=== PATIENT | female | born 1990 | race African-American/Black ===

== ENCOUNTER 2018-06-02 12:12 | Inpatient (IN) | payer OTHER ==
[2018-06-02] MEDS ORDERED: ACETAMINOPHEN 1000 MG/100 ML VIAL (NON FORMULARY) IVPB ONE ×2 (12:23→19:11)
[2018-06-02] MEDS ORDERED: SODIUM CHLORIDE 1,000 ML IV STA (12:23)
[2018-06-02] MEDS ORDERED: ACETAMINOPHEN INJECTION 100 ML IVPB ONE ×2 (12:28→19:32)
[2018-06-02 12:46] LABS: BASO % 0.2 % (0-2.0); EOS % 0.1 % (0-4.5); HEMATOCRIT 38.2 % (32.4-45.2); HEMOGLOBIN 12.6 GM/dL (10.7-15.3); LYMPH % 4.1 % (8-40); MCH 30.7 pg (25.7-33.7); MCHC 32.9 g/dl (32.0-36.0); MEAN CELL VOLUME 93.4 fl (80-96); MEAN PLT VOLUME 10.1 fl (7.5-11.1); NEUT % 85.6 % (42.8-82.8); PLATELET COUNT 140 K/MM3 (134-434); RBC 4.09 M/mm3 (3.60-5.2); RDW 13.4 % (11.6-15.6)
[2018-06-02] MEDS ORDERED: FAMOTIDINE 20 MG/50 ML IVPB 20 MG/50 ML MG IVPB ONE ×2 (12:46→13:16)
--- NOTE | 2018-06-02 12:46 | PDOC ---
History of Present Illness - General History Source: Patient Exam Limitations: No Limitations - History of Present Illness Initial Comments: 06/02/18 13:06 The patient is a 28 year old female, with a significant PMH of migraines during childhood, who presents to the emergency department today for evaluation of a headache and abdominal pain for approximately 5 days. Patient endorses fronto- temporal headache, photosensitivity, chest pain, and SOB. The patient notes subjective fever, diaphoresis, and body aches which began 2 days ago. She also reports several episodes of NBNB emesis which began last night into this morning. She states that she has taken advil but that it only helps for about a half hour. Denies palpitation, dizziness, weakness, D, bladder and bowel problems, leg swelling, rash. No sick contacts or travel. No new changes in medications. Takes OCP for control Allergies: None Past Medical History: Migraines during childhood Social history: Lives with family. No tobacco, ETOH or drug use. Surgical history: None reported. <Leigh Lewis - Last Filed: 06/02/18 13:06> - General History Source: Patient Exam Limitations: No Limitations <Dayanara Rabago - Last Filed: 06/03/18 07:22> - General Chief Complaint: Pain Stated Complaint: HEADACHE/ABD PAIN Time Seen by Provider: 06/02/18 12:23 Past History <Leigh Lewis - Last Filed: 06/02/18 13:06> - Past Medical History Asthma: No Cancer: No Cardiac Disorders: No COPD: No Diabetes: No HTN: No Seizures: No Thyroid Disease: No - Suicide/Smoking/Psychosocial Hx Smoking History: Never smoked Have you smoked in the past 12 months: No Number of Cigarettes Smoked Daily: 0 Information on smoking cessation initiated: No Hx Alcohol Use: No Drug/Substance Use Hx: No Hx Substance Use Treatment: No <Dayanara Rabago - Last Filed: 06/03/18 07:22> - Past Medical History Allergies/Adverse Reactions: Allergies Allergy/AdvReac Type Severity Reaction Status Date / Time No Known Allergies Allergy Verified 06/02/18 12:19 Home Medications: Ambulatory Orders NK [No Known Home Medication] 06/02/18 Review of Systems - Review of Systems Comments:: 06/02/18 13:06 GENERAL/CONSTITUTIONAL: (+) fever and chills. (+)diaphoresis. (+)body aches. HEAD, EYES, EARS, NOSE AND THROAT: No change in vision or hearing. No ear pain or discharge. No sore throat or mouth pain. No difficulty swallowing. No congestion. CARDIOVASCULAR: (+) chest pain. No palpitations, syncope or edema. RESPIRATORY: (+) SOB. No cough, wheezing, or hemoptysis. GASTROINTESTINAL (+)nausea/vomiting. No diarrhea or constipation. No bloody stools. GENITOURINARY: No hematuria, dysuria, frequency, urgency or other changes. MUSCULOSKELETAL: No decreased range of motion. No neck or back pain. +myalgias SKIN: No rash or changes in skin color or lesions. No wounds. NEUROLOGIC: alert and oriented appropriately (+) headache, (+)photo sensitivity. dizziness, loss of consciousness, or change in strength/sensation. ALLERGIC/IMMUNOLOGIC: No allergies PSYCH: no anxiety/depression All other systems reviewed and negative, or as documented in HPI. <Leigh Lewis - Last Filed: 06/02/18 13:06> *Physical Exam - Vital Signs Last Vital Signs Temp Pulse Resp BP Pulse Ox 103.0 F H 140 H 21 H 108/63 100 06/02/18 12:15 06/02/18 12:15 06/02/18 12:15 06/02/18 12:15 06/02/18 12:15 - Physical Exam Comments: 06/02/18 13:06 General: malaised appearing HEENT: NCAT, PERRL, EOMI, clear conjunctiva, anicteric, moist mucus membranes, clear oropharynx, no oral lesions.. Neck: neck supple, FROM, neg brudzinski or kernig sign Resp: CTAB, normal and even respirations, no respiratory distress CVS: (+)tachycardic, no murmurs, 2+ peripheral pulses throughout, no peripheral edema Abdomen: (+)diffuse tenderness. soft, ND, no rebound or guarding. No murphys sign or mcburneys point tenderness. No CVAT. Back: nontender, normal inspection and ROM MSK: no edema, MEZA x4, ROM intact. No clubbing or cyanosis. normal bulk and tone. Neuro: alert, oriented appropriately; no focal neurologic deficits Skin: (+)Very Warm to touch. well perfused, cap refill <2 sec, normal color, no rash <Leigh Lewis - Last Filed: 06/02/18 13:06> - Vital Signs Last Vital Signs Temp Pulse Resp BP Pulse Ox 103.0 F H 140 H 21 H 108/63 100 06/02/18 12:15 06/02/18 12:15 06/02/18 12:15 06/02/18 12:15 06/02/18 12:15 <Dayanara Rabago - Last Filed: 06/03/18 07:22> Heart Score/ECG Review #1 ECG reviewed & interpreted by me at: 14:45 General ECG Interpretation: Sinus Rhythm, Normal Rate Compared to previous ECG there are: Previous ECG unavail 06/02/18 15:48 EKG normal sinus rhythm at 97 bpm, no interval abnormalities, narrow QRS, ST and T wave segments and morphology normal. Nonspecific T wave abnormalities <Dayanara Rabago - Last Filed: 06/03/18 07:22> ED Treatment Course - LABORATORY CBC & Chemistry Diagram: 06/02/18 12:39 06/02/18 12:39 - ADDITIONAL ORDERS Additional order review: 06/02/18 12:39 RBC 4.09 MCV 93.4 MCHC 32.9 RDW 13.4 D MPV 10.1 Neutrophils % 85.6 H D Lymphocytes % 4.1 L D Monocytes % 10.0 Eosinophils % 0.1 D Basophils % 0.2 - Medications Given in the ED: ED Medications Discontinued Medications Generic Name Dose Route Start Last Admin Trade Name Freq PRN Reason Stop Dose Admin Acetaminophen 1,000 mg 06/02/18 12:23 06/02/18 12:39 Ofirmev Injection - IVPB 06/02/18 12:24 1,000 mg ONCE ONE Administration <Leigh Lewis - Last Filed: 06/02/18 13:06> - LABORATORY CBC & Chemistry Diagram: 06/02/18 12:39 06/02/18 12:39 - Medications Given in the ED: ED Medications Discontinued Medications Generic Name Dose Route Start Last Admin Trade Name Freq PRN Reason Stop Dose Admin Acetaminophen 1,000 mg 06/02/18 12:23 06/02/18 12:39 Ofirmev Injection - IVPB 06/02/18 12:24 1,000 mg ONCE ONE Administration <Dayanara Rabago - Last Filed: 06/03/18 07:22> Medical Decision Making - Medical Decision Making 06/02/18 15:20 I, Dayanara Rabago MD, attest that this document has been prepared under my direction and personally reviewed by me in its entirety. I further attest, that it accurately reflects all work, treatment, procedures and medical decision -making performed by me. See HPI for details Vital signs reviewed, +fever and tachycardia noted. No hypoxia. Prior notes reviewed, including admissions, discharges and consultations. laboratory results and imaging reviewed, basic labs and lytes wnl, notable for + leukocytosis; LFTs/lipase normal UA_pending CXR_no acute chest pathology, clear lungs Flu test_neg ED course: DDx abdominal pain: Renal colic, biliary colic, metabolic/electrolyte derangements. GERD, PUD, esophageal spasm, pancreatitis, hepatitis, constipation , colitis, gastroenteritis, cholecystitis, UTI, pyelonephritis, ileus, SBO, medication side effect, hernia, appendicitis, diverticulitis, doubt pelvic etiology such as symptomatic cyst/torsion, denies as on ocp. Given medications IVF, tylenol / toradol and pepcid, with clinical improvement. Tolerating oral intake, given PO contrast given BMI<20 at 3pm. Vital signs reviewed and still febrile, tachy improved. On repeat physical exam, headache improved, mentating and no focal neuro changes/deficits. the abdomen is soft and with RLQ and RUQ tenderness, will need CT a/p to r/o appy vs infection/ inflammation/intra abdominal process with high fever. s/o pending CT results to Dr Elizabeth at 4pm 06/02/18 16:57 06/03/18 07:17 <Dayanara Rabago - Last Filed: 06/03/18 07:22> *DC/Admit/Observation/Transfer - Attestations Scribe Attestion: 06/02/18 13:06 Documentation prepared by Leigh Lewis, acting as medical communication specialist for Dayanara Rabago MD. <Leigh Lewis - Last Filed: 06/02/18 13:06> <Dayanara Rabago - Last Filed: 06/03/18 07:22> Diagnosis at time of Disposition: Fever Qualifiers: Fever type: unspecified Qualified Code(s): R50.9 - Fever, unspecified Abdominal pain Qualifiers: Abdominal location: unspecified location Qualified Code(s): R10.9 - Unspecified abdominal pain - Discharge Dispostion Condition at time of disposition: Fair
[2018-06-02] MEDS ORDERED: SODIUM CHLORIDE 0.9% 500 ML INFUS.BAG IV ONE (12:59)
[2018-06-02 13:17] LABS: ALBUMIN 3.5 g/dl (3.4-5.0); ALK PHOS 64 U/L (45-117); ANION GAP 7 MMOL/L (8-16); BILIRUBIN,TOTAL 0.9 mg/dL (0.2-1); BLOOD UREA NITROGEN 11 mg/dL (7-18); CALCIUM 8.9 mg/dL (8.5-10.1); CHLORIDE 102 mmol/L (98-107); CO2 25 mmol/L (21-32); CREATININE 1.2 mg/dL (0.55-1.3); GLUCOSE,RANDOM 99 mg/dL (74-106); LIPASE 108 U/L (73-393); POTASSIUM 3.4 mmol/L (3.5-5.1); SGOT/AST 11 U/L (15-37); SGPT/ALT 17 U/L (13-61); SODIUM 134 mmol/L (136-145)
[2018-06-02 13:48] LABS: ANISOCYTOSIS 1+; MACROCYTOSIS 1+; PLATELET ESTIMATE NORMAL
[2018-06-02] MEDS ORDERED: KETOROLAC TROMETHAMINE 15 MG/ML VIAL IVPUSH ONE (14:18)
[2018-06-02] MEDS ORDERED: POTASSIUM CHLORIDE TABS 20 MEQ TABLET.ER (FP) PO ONE ×2 (14:56→16:27)
[2018-06-02] MEDS ORDERED: KETOROLAC TROMETHAMINE 15 MG/ML VIAL ONE (16:27)
[2018-06-02 17:32] LABS: EPI CELLS 3.2 /HPF (0-5); PH,URINE 5.5 (5.0-8.0); URINE APPEARANCE CLOUDY; URINE BACTERIA 6332.7 /hpf (NEGATIVE); URINE BILIRUBIN NEGATIVE (NEGATIVE); URINE CASTS 47 /hpf (0-8); URINE COLOR YELLOW; URINE GLUCOSE (UA) NEGATIVE (NEGATIVE); URINE KETONE 1+ (NEGATIVE); URINE LEUK ESTERASE 2+ (NEGATIVE); URINE NITRITE POSITIVE (NEGATIVE); URINE PROTEIN 2+ (NEGATIVE); URINE RBC 4 /hpf (0-4); URINE WBC 151 /hpf (0-5)
[2018-06-02] MEDS ORDERED: CEFTRIAXONE 1 GM in DEXTROSE 5%-WATER - 100 ML IVPB ONE (19:10)
[2018-06-02] MEDS ORDERED: SODIUM CHLORIDE 0.9% 1000 ML INFUS.BAG IV ONE (19:11)
--- NOTE | 2018-06-02 19:55 | PN ---
Teaching Attending Note Name of Resident: Ebony Brown ATTENDING PHYSICIAN STATEMENT I saw and evaluated the patient. I reviewed the resident's note and discussed the case with the resident. I agree with the resident's findings and plan as documented. SUBJECTIVE: Patient is a 28 year old woman with a significant PMH of migraines during childhood, who presents to the ER today for evaluation of a headache and abdominal pain for approximately 5 days. Patient has fronto-temporal headache, photosensitivity, chest pain, and SOB. The patient notes subjective fever, diaphoresis, and body aches which began 2 days ago. She also reports several episodes of NBNB emesis which began last night into this morning. She states that she has taken Advil but that it only helps for about a half hour. Denies palpitation, dizziness, weakness, bladder and bowel problems, leg swelling or rash. No sick contacts or travel. No new changes in medications. Is on Depo for control on her left arm. LMP ended yesterday. OBJECTIVE: Alert Vital Signs Period Temp Pulse Resp BP Sys/Pedersen Pulse Ox Last 24 Hr 100.5 F-103.0 F 98-140 16-21 96-112/53-67 96-100 HEENT: No Jaundice, eye redness or discharge, PERRLA, EOMI. Normocephalic, atraumatic. External ears are normal and hearing is grossly intact. No nasal discharge. Neck: Supple, nontender. No palpable adenopathy or thyromegaly. No JVD Chest: Good effort. Clear to auscultation and percussion. Heart: Regular. No S3, rub or murmur Abdomen: Not distended, soft, diffuse tenderness and no HSM. No rebound or guarding. No CVAT. Normal bowel sounds. Ext: Peripheral pulses intact. No leg edema. Skin: Warm and dry. No petechiae, rash or ecchymosis. Neuro: Alert. Oriented x3. CN 2-12 grossly intact. Sensation grossly intact in all four extremities and DTR are symmetric. Psych: Appropriate mood and affect. Good insight. Current Medications Generic Name Dose Route Start Last Admin Trade Name Freq PRN Reason Stop Dose Admin Acetaminophen 1,000 mg 06/02/18 19:52 Ofirmev Injection - IVPB Q6H PRN FEVER Home Medications Medication Instructions Recorded NK [No Known Home Medication] 06/02/18 Abnormal Lab Results 06/02/18 06/02/18 06/02/18 12:39 12:39 16:51 WBC 14.0 H Absolute Neuts (auto) 12.0 H Neutrophils % 85.6 H D Lymphocytes % 4.1 L D Sodium 134 L Potassium 3.4 L Anion Gap 7 L AST 11 L Urine Protein 2+ H Urine Ketones 1+ H Urine Blood 2+ H Urine Nitrite Positive H Ur Leukocyte Esterase 2+ H ASSESSMENT AND PLAN: 1. Sepsis due to Pyelonephritis - CT abd/pelvis with contrast shows findings consistent with right kidney pyelonephritis and an equivocal small focus of ?? plantar fascitis involving the upper pole of the left kidney. Sepsis workup done and she is being treated with IV Rocephin, Pepcid, Toradol and Zofran as well as IV NS. Lactic acid level pending. No acute abnormality on CXR. EKG shows sinus tachycardia with no significant ST-T wave changes. Flu swab is negative. Hypokalemia may be due to vomiting. Will check Mg+ level and give IV KCL. 2. DVT prophylaxis - Lovenox 40 mg SQ q 24 hours. 3. Advance directives - Full code
[2018-06-02] MEDS ORDERED: CEFTRIAXONE 1 GM/50 ML BAG ONE (19:57)
[2018-06-02] MEDS ORDERED: SODIUM CHLORIDE 500 ML IV STA (19:58)
--- NOTE | 2018-06-02 20:34 | HP ---
CHIEF COMPLAINT:abdominal pains x 5 days PCP: HISTORY OF PRESENT ILLNESS: 28 y/o female with no PMH presents to to the ED with a 5 day history of worsening abdominal pains. She says the pain started on Tuesday out of nowhere, and has been continuous since then. She describes the pain as sharp and cramp and states that it is worse at night to the point where she cannot sleep. She has had fevers at home, the highest being 103. She has had multiple episodes of vomiting but no diarrhea. states she has never had anything like this before- no one else is sick at home and she denies any recent travel. ER course was notable for: (1)T 103, HR 140 WBC 14 (2) given 2 L of fluids, 1 gram ceftriaxone, tylenol/toradol/pepcid (3) ab/pelvis CT showing right sided pyelonephritis w/ small plantar fascitis in upper pole of L kidney Recent Travel: denies PAST MEDICAL HISTORY: none PAST SURGICAL HISTORY: denies Social History: Smoking:denies Alcohol:denies Drugs: denies Family History: Allergies No Known Allergies Allergy (Verified 06/02/18 12:19) HOME MEDICATIONS: Home Medications Medication Instructions Recorded NK [No Known Home Medication] 06/02/18 REVIEW OF SYSTEMS CONSTITUTIONAL: Present: fever, diaphoresis, loss of appetite Absent: chills, generalized weakness, malaise, weight change HEENT: Absent: rhinorrhea, nasal congestion, throat pain, throat swelling, difficulty swallowing, mouth swelling, ear pain, eye pain, visual changes CARDIOVASCULAR: Absent: chest pain, syncope, palpitations, irregular heart rate, lightheadedness , peripheral edema RESPIRATORY: Absent: cough, shortness of breath, dyspnea with exertion, orthopnea, wheezing, stridor, hemoptysis GASTROINTESTINAL: Present: abdominal pain, nausea, vomiting, Absent: abdominal distension, diarrhea, constipation, melena, hematochezia GENITOURINARY: Absent: dysuria, frequency, urgency, hesitancy, hematuria, flank pain, genital pain MUSCULOSKELETAL: Absent: myalgia, arthralgia, joint swelling, back pain, neck pain SKIN: Absent: rash, itching, pallor HEMATOLOGIC/IMMUNOLOGIC: Absent: easy bleeding, easy bruising, lymphadenopathy, frequent infections ENDOCRINE: Absent: unexplained weight gain, unexplained weight loss, heat intolerance, cold intolerance NEUROLOGIC: Absent: headache, focal weakness or paresthesias, dizziness, unsteady gait, seizure, mental status changes, bladder or bowel incontinence PSYCHIATRIC: Absent: anxiety, depression, suicidal or homicidal ideation, hallucinations. PHYSICAL EXAMINATION Vital Signs - 24 hr 06/02/18 06/02/18 06/02/18 12:15 13:57 15:51 Temperature 103.0 F H 101.6 F H 100.5 F H Pulse Rate 140 H Pulse Rate [ 105 H 98 H Left Apical] Respiratory 21 H 16 16 Rate Blood Pressure 108/63 Blood Pressure 96/53 L 100/65 [Left Arm] O2 Sat by Pulse 100 96 100 Oximetry (%) 06/02/18 06/02/18 16:59 19:05 Temperature 100.7 F H 101.7 F H Pulse Rate Pulse Rate [ 104 H 105 H Left Apical] Respiratory 16 18 Rate Blood Pressure Blood Pressure 106/61 112/67 [Left Arm] O2 Sat by Pulse 100 97 Oximetry (%) GENERAL: Awake, alert, appears in distress EYES: PEERLA: EOMI no scleral icterus NECK: no JVD; no lymphdenopathy LUNGS: CTA B/L; no rales, rhonchi or wheezing. HEART: tachycardic, normal S1 and S2 without murmur, rub or gallop. ABDOMEN: Soft,diffuse tenderness upon palpation; nondistended +BS in all 4 quadrants MUSCULOSKELETAL: No CVA tenderness EXTREMITIES: warm; well-perfused;no clubbing/cyanosis or edema NEUROLOGICAL: Cranial nerves II-XII intact. Normal speech. Normal gait. PSYCHIATRIC: Cooperative. Good eye contact. Appropriate mood and affect. SKIN: Warm, dry, normal turgor, no rashes or lesions noted, normal capillary refill. Laboratory Results - last 24 hr 06/02/18 06/02/18 06/02/18 12:37 12:39 12:39 WBC 14.0 H RBC 4.09 Hgb 12.6 Hct 38.2 D MCV 93.4 MCH 30.7 MCHC 32.9 RDW 13.4 D Plt Count 140 MPV 10.1 Absolute Neuts (auto) 12.0 H Neutrophils % 85.6 H D Neutrophils % (Manual) 76.8 Band Neutrophils % 5.0 Lymphocytes % 4.1 L D Lymphocytes % (Manual) 8.1 Monocytes % 10.0 Monocytes % (Manual) 9 Eosinophils % 0.1 D Eosinophils % (Manual) 0.0 Basophils % 0.2 Basophils % (Manual) 0.0 Myelocytes % (Man) 0 Promyelocytes % (Man) 0 Blast Cells % (Manual) 0 Nucleated RBC % 0 Metamyelocytes 0 Hypochromia 0 Platelet Estimate Normal Platelet Comment Present Polychromasia 0 Poikilocytosis 0 Anisocytosis 1+ Microcytosis 0 Macrocytosis 1+ Sodium 134 L Potassium 3.4 L Chloride 102 Carbon Dioxide 25 Anion Gap 7 L BUN 11 Creatinine 1.2 Creat Clearance w eGFR 53.89 Random Glucose 99 Calcium 8.9 Total Bilirubin 0.9 AST 11 L ALT 17 Alkaline Phosphatase 64 Total Protein 8.0 Albumin 3.5 Lipase 108 Serum , Qual Negative Urine Color Urine Appearance Urine pH Ur Specific [place] Urine Protein Urine Glucose (UA) Urine Ketones Urine Blood Urine Nitrite Urine Bilirubin Urine Urobilinogen Ur Leukocyte Esterase Urine WBC (Auto) Urine RBC (Auto) Urine Casts (Auto) U Epithel Cells (Auto) Urine Bacteria (Auto) Urine HCG, Qual Influenza A (Rapid) Influenza B (Rapid) 06/02/18 06/02/18 06/02/18 13:49 16:51 16:51 WBC RBC Hgb Hct MCV MCH MCHC RDW Plt Count MPV Absolute Neuts (auto) Neutrophils % Neutrophils % (Manual) Band Neutrophils % Lymphocytes % Lymphocytes % (Manual) Monocytes % Monocytes % (Manual) Eosinophils % Eosinophils % (Manual) Basophils % Basophils % (Manual) Myelocytes % (Man) Promyelocytes % (Man) Blast Cells % (Manual) Nucleated RBC % Metamyelocytes Hypochromia Platelet Estimate Platelet Comment Polychromasia Poikilocytosis Anisocytosis Microcytosis Macrocytosis Sodium Potassium Chloride Carbon Dioxide Anion Gap BUN Creatinine Creat Clearance w eGFR Random Glucose Calcium Total Bilirubin AST ALT Alkaline Phosphatase Total Protein Albumin Lipase Serum , Qual Urine Color Yellow Urine Appearance Cloudy Urine pH 5.5 Ur Specific [place] 1.021 Urine Protein 2+ H Urine Glucose (UA) Negative Urine Ketones 1+ H Urine Blood 2+ H Urine Nitrite Positive H Urine Bilirubin Negative Urine Urobilinogen 1.0 Ur Leukocyte Esterase 2+ H Urine WBC (Auto) 151 Urine RBC (Auto) 4 Urine Casts (Auto) 47 U Epithel Cells (Auto) 3.2 Urine Bacteria (Auto) 6332.7 Urine HCG, Qual Negative Influenza A (Rapid) Negative Influenza B (Rapid) Negative ASSESSMENT/PLAN: 28 y/o female with no PMH presents to the ED with diffuse abdominal pain, fevers , loss of appetite found to have right sided pyelonephritis #Right sided Pyelonephritis already received 1 gram of ceftriaxone; tylenol and pepcid will continue with ceftriaxone 2 gram daily and flagyl given enteritis-like symptoms f/u lactic acid zofran PRN for nausea; tylenol PRN pain NS @125mls/hr monitor hemodynamics F/E/N NS @125mls/hr monitor electrolytes regular diet dvt ppx: lovenox Problem List - Problem (1) Pyelonephritis Code(s): N12 - TUBULO-INTERSTITIAL NEPHRITIS, NOT SPCF ACUTE OR CHRONIC (2) Abdominal pain Code(s): R10.9 - UNSPECIFIED ABDOMINAL PAIN Qualifiers: Abdominal location: unspecified location Qualified Code(s): R10.9 - Unspecified abdominal pain Visit type - Emergency Visit Emergency Visit: Yes ED Registration Date: 06/02/18 Care time: The patient presented to the Emergency Department on the above date and was hospitalized for further evaluation of their emergent condition. - New Patient This patient is new to me today: Yes Date on this admission: 06/02/18 - Critical Care Critical Care patient: No
[2018-06-02] MEDS: SODIUM CHLORIDE 1,000 ML IV SCH (21:28)
--- NOTE | 2018-06-02 21:34 | PDOC ---
*Physical Exam - Vital Signs Last Vital Signs Temp Pulse Resp BP Pulse Ox 101.7 F H 105 H 18 112/67 97 06/02/18 19:05 06/02/18 19:05 06/02/18 19:05 06/02/18 19:05 06/02/18 19:05 ED Treatment Course - LABORATORY CBC & Chemistry Diagram: 06/02/18 12:39 06/02/18 12:39 - ADDITIONAL ORDERS Additional order review: Laboratory Results 06/02/18 06/02/18 06/02/18 16:51 16:51 12:39 Sodium 134 L Potassium 3.4 L Chloride 102 Carbon Dioxide 25 Anion Gap 7 L BUN 11 Creatinine 1.2 Creat Clearance w eGFR 53.89 Random Glucose 99 Calcium 8.9 Total Bilirubin 0.9 AST 11 L ALT 17 Alkaline Phosphatase 64 Total Protein 8.0 Albumin 3.5 Lipase 108 Serum , Qual Urine Color Yellow Urine Appearance Cloudy Urine pH 5.5 Ur Specific [place] 1.021 Urine Protein 2+ H Urine Glucose (UA) Negative Urine Ketones 1+ H Urine Blood 2+ H Urine Nitrite Positive H Urine Bilirubin Negative Urine Urobilinogen 1.0 Ur Leukocyte Esterase 2+ H Urine WBC (Auto) 151 Urine RBC (Auto) 4 Urine Casts (Auto) 47 U Epithel Cells (Auto) 3.2 Urine Bacteria (Auto) 6332.7 Urine HCG, Qual Negative 06/02/18 12:37 Sodium Potassium Chloride Carbon Dioxide Anion Gap BUN Creatinine Creat Clearance w eGFR Random Glucose Calcium Total Bilirubin AST ALT Alkaline Phosphatase Total Protein Albumin Lipase Serum , Qual Negative Urine Color Urine Appearance Urine pH Ur Specific [place] Urine Protein Urine Glucose (UA) Urine Ketones Urine Blood Urine Nitrite Urine Bilirubin Urine Urobilinogen Ur Leukocyte Esterase Urine WBC (Auto) Urine RBC (Auto) Urine Casts (Auto) U Epithel Cells (Auto) Urine Bacteria (Auto) Urine HCG, Qual 06/02/18 12:39 RBC 4.09 MCV 93.4 MCHC 32.9 RDW 13.4 D MPV 10.1 Neutrophils % 85.6 H D Lymphocytes % 4.1 L D Monocytes % 10.0 Eosinophils % 0.1 D Basophils % 0.2 - Medications Given in the ED: ED Medications Discontinued Medications Generic Name Dose Route Start Last Admin Trade Name Freq PRN Reason Stop Dose Admin Acetaminophen 1,000 mg 06/02/18 12:23 06/02/18 12:39 Ofirmev Injection - IVPB 06/02/18 12:24 1,000 mg ONCE ONE Administration Acetaminophen 1,000 mg 06/02/18 19:11 06/02/18 19:30 Ofirmev Injection - IVPB 06/02/18 19:12 1,000 mg ONCE ONE Administration Sodium Chloride 1,000 mls @ 1,000 mls/hr 06/02/18 12:23 06/02/18 12:39 Normal Saline - IV 06/02/18 13:22 1,000 mls/hr ASDIR STA Administration Famotidine/Sodium Chloride 20 mg in 50 mls @ 100 mls/hr 06/02/18 12:46 13:36 Pepcid 20 Mg Premixed Ivpb - IVPB 06/02/18 13:15 100 mls/hr ONCE ONE Administration Ceftriaxone Sodium 1 gm/ 100 mls @ 200 mls/hr 06/02/18 19:10 06/02/18 19:50 Dextrose IVPB 06/02/18 19:39 200 mls/hr ONCE ONE Administration Sodium Chloride 500 mls @ 500 mls/hr 06/02/18 19:58 06/02/18 21:27 Normal Saline - IV 06/02/18 20:57 500 mls/hr ASDIR STA Administration Metronidazole 500 mg in 100 mls @ 100 mls/hr 06/02/18 20:45 06/02/18 21:28 Flagyl 500mg Premixed Ivpb - IVPB Not Given Q8H-IV JEANETH Ketorolac Tromethamine 15 mg 06/02/18 14:18 06/02/18 16:31 Toradol Injection - IVPUSH 06/02/18 14:19 15 mg ONCE ONE Administration Potassium Chloride 40 meq 06/02/18 14:56 06/02/18 16:31 K-Dur - PO 06/02/18 14:57 40 meq ONCE ONE Administration Sodium Chloride 1,000 ml 06/02/18 12:59 06/02/18 13:50 Normal Saline - IV 06/02/18 13:00 1,000 ml ONCE ONE Administration Sodium Chloride 1,000 ml 06/02/18 19:11 06/02/18 20:30 Normal Saline - IV 06/02/18 19:12 1,000 ml ONCE ONE Administration Medical Decision Making - Medical Decision Making 06/02/18 21:34 Patient signed out to me pending CAT scan CAT scan demonstrates pyelonephritis Given nausea vomiting difficulty tolerating fluids and continued fever we'll admit hospital for IV fluids antibiotics and further management *DC/Admit/Observation/Transfer Diagnosis at time of Disposition: Fever Qualifiers: Fever type: unspecified Qualified Code(s): R50.9 - Fever, unspecified Abdominal pain Qualifiers: Abdominal location: unspecified location Qualified Code(s): R10.9 - Unspecified abdominal pain - Discharge Dispostion Condition at time of disposition: Good - Referrals - Patient Instructions - Post Discharge Activity
[2018-06-02] MEDS: ENOXAPARIN NA (PORCINE) 40 MG/0.4 ML DISP.SYRIN SQ SCH (21:45)
[2018-06-02] MEDS ORDERED: ENOXAPARIN NA (PORCINE) 40 MG/0.4 ML DISP.SYRIN SQ ONE (21:45)
[2018-06-02] MEDS: ONDANSETRON 4 MG/2 ML VIAL IVPUSH PRN (23:53)
[2018-06-02] MEDS: ACETAMINOPHEN 1000 MG/100 ML VIAL (NON FORMULARY) IVPB PRN (23:53)
[2018-06-03 00:17] VITALS: BMI 20.3
[2018-06-03] MEDS ORDERED: IBUPROFEN 600 MG TABLET (FP) PO ONE (02:01)
[2018-06-03 07:11] LABS: BASO % 0.2 % (0-2.0); EOS % 0.2 % (0-4.5); HEMATOCRIT 30.7 % (32.4-45.2); HEMOGLOBIN 10.2 GM/dL (10.7-15.3); LYMPH % 11.1 % (8-40); MCH 31.2 pg (25.7-33.7); MCHC 33.2 g/dl (32.0-36.0); MEAN CELL VOLUME 93.8 fl (80-96); MEAN PLT VOLUME 10.9 fl (7.5-11.1); MONO % 12.8 % (3.8-10.2); NEUT % 75.7 % (42.8-82.8); PLATELET COUNT 97 K/MM3 (134-434); RBC 3.28 M/mm3 (3.60-5.2); RDW 13.3 % (11.6-15.6); WHITE BLOOD COUNT 8.6 K/mm3 (4.0-10.0)
[2018-06-03 07:36] LABS: ANION GAP 7 MMOL/L (8-16); BLOOD UREA NITROGEN 8 mg/dL (7-18); CHLORIDE 114 mmol/L (98-107); CO2 20 mmol/L (21-32); CREATININE 0.8 mg/dL (0.55-1.3); GLUCOSE,RANDOM 76 mg/dL (74-106); MAGNESIUM 2.1 mg/dL (1.8-2.4); POTASSIUM 3.4 mmol/L (3.5-5.1); SODIUM 140 mmol/L (136-145)
[2018-06-03 07:47] LABS: CALCIUM 6.9 mg/dL (8.5-10.1)
[2018-06-03] MEDS: SODIUM CHLORIDE 1,000 ML IV SCH (08:25)
[2018-06-03] MEDS: ONDANSETRON 4 MG/2 ML VIAL IVPUSH PRN ×2 (08:29→15:21)
[2018-06-03] MEDS: ENOXAPARIN NA (PORCINE) 40 MG/0.4 ML DISP.SYRIN SQ SCH (09:12)
[2018-06-03] MEDS: ACETAMINOPHEN 1000 MG/100 ML VIAL (NON FORMULARY) IVPB PRN ×2 (10:42→17:15)
--- NOTE | 2018-06-03 10:53 | PN ---
Progress Note (short form) - Note Progress Note: PAtient is a 28yo female with no significant PMHx presents to to the ED with a 5 day history of worsening abdominal pain. fever of 103 at home. Also c/o having nausea with right sided low back pain. Vital Signs Temperature 101.6 F H 06/03/18 10:37 Pulse Rate 75 06/03/18 09:23 Respiratory Rate 20 06/03/18 09:23 Blood Pressure 110/70 06/03/18 09:23 O2 Sat by Pulse Oximetry (%) 95 06/02/18 22:09 Initial Vital Signs Temp Pulse Resp BP Pulse Ox 103.0 F H 140 H 21 H 108/63 100 06/02/18 12:15 06/02/18 12:15 06/02/18 12:15 06/02/18 12:15 06/02/18 12:15 GENERAL: The patient is awake, alert, and fully oriented, in mild distress. HEAD: Normal with no signs of trauma. EYES: PERRL, extraocular movements intact, sclera anicteric, conjunctiva clear. ENT: Ears normal, oropharynx clear without exudates, moist mucous membranes. NECK: Trachea midline, full range of motion, supple. LUNGS: Breath sounds equal, clear to auscultation bilaterally, no wheezes, no crackles, no accessory muscle use. HEART: Regular rate and rhythm, S1, S2 without murmur, rub or gallop. ABDOMEN: Soft, mild epigatric tenderness, with right CVA tenderness on palpation . ND, positive for BS, no masses appreciated. EXTREMITIES: 2+ pulses, warm, well-perfused, no edema. NEUROLOGICAL: Cranial nerves II through XII grossly intact. Normal speech, gait not observed. PSYCH: Normal mood, normal affect. SKIN: Warm, dry, normal turgor, no rashes or lesions noted CBCD WBC 8.6 K/mm3 (4.0-10.0) 06/03/18 05:30 RBC 3.28 M/mm3 (3.60-5.2) L 06/03/18 05:30 Hgb 10.2 GM/dL (10.7-15.3) L 06/03/18 05:30 Hct 30.7 % (32.4-45.2) L D 06/03/18 05:30 MCV 93.8 fl (80-96) 06/03/18 05:30 MCHC 33.2 g/dl (32.0-36.0) 06/03/18 05:30 RDW 13.3 % (11.6-15.6) 06/03/18 05:30 Plt Count 97 K/MM3 (134-434) L D 06/03/18 05:30 MPV 10.9 fl (7.5-11.1) 06/03/18 05:30 CMP Sodium 140 mmol/L (136-145) 06/03/18 05:30 Potassium 3.4 mmol/L (3.5-5.1) L 06/03/18 05:30 Chloride 114 mmol/L (98-107) H 06/03/18 05:30 Carbon Dioxide 20 mmol/L (21-32) L 06/03/18 05:30 Anion Gap 7 MMOL/L (8-16) L 06/03/18 05:30 BUN 8 mg/dL (7-18) 06/03/18 05:30 Creatinine 0.8 mg/dL (0.55-1.3) 06/03/18 05:30 Creat Clearance w eGFR 86.04 (>60) 06/03/18 05:30 Random Glucose 76 mg/dL (74-106) 06/03/18 05:30 Calcium 6.9 mg/dL (8.5-10.1) L* 06/03/18 05:30 Total Bilirubin 0.9 mg/dL (0.2-1) 06/02/18 12:39 AST 11 U/L (15-37) L 06/02/18 12:39 ALT 17 U/L (13-61) 06/02/18 12:39 Alkaline Phosphatase 64 U/L (45-117) 06/02/18 12:39 Total Protein 8.0 g/dl (6.4-8.2) 06/02/18 12:39 Albumin 3.5 g/dl (3.4-5.0) 06/02/18 12:39 Current Medications Generic Name Dose Route Start Last Admin Trade Name Freq PRN Reason Stop Dose Admin Acetaminophen 1,000 mg 06/02/18 19:52 06/03/18 10:42 Ofirmev Injection - IVPB 1,000 mg Q6H PRN Administration FEVER Enoxaparin Sodium 40 mg 06/02/18 20:45 06/03/18 09:12 Lovenox - SQ 40 mg DAILY JEANETH Administration Sodium Chloride 1,000 mls @ 125 mls/hr 06/02/18 20:00 06/03/18 08:25 Normal Saline - IV 125 mls/hr ASDIR JEANETH Administration Ondansetron HCl 4 mg 06/02/18 20:38 06/03/18 08:29 Zofran Injection IVPUSH 4 mg Q6H PRN Administration NAUSEA Home Medications Medication Instructions Recorded NK [No Known Home Medication] 06/02/18 CT abdomen and pelvis: Right pylonephritis. Assessment and plan: Patient is a 28yo female with no significant PMHx presents to to the ED with a 5 day history of worsening abdominal pain with nausea and fever of 103 at home, and was found to have right sided CVA tenderness. # Acute pylonephritis will place the patient on Rocephin 2gm IV daily, Id consull #Sepsis, due to pylonephritis continue IVF and IV antibiotic, Zofran for n/v prn , tylenol for fever. #Hypokalemia IV KCL in IVF -IV Rocephin -IV toradol -Ivf with KCL supplement x 2 bags -follow cx -DVT px: Lovenox Visit type - Emergency Visit Emergency Visit: Yes ED Registration Date: 06/02/18 Care time: The patient presented to the Emergency Department on the above date and was hospitalized for further evaluation of their emergent condition. - New Patient This patient is new to me today: Yes Date on this admission: 06/03/18 - Critical Care Critical Care patient: No - Discharge Referral Referred to [facility] Med P.C.: No
[2018-06-03] MEDS ORDERED: KETOROLAC TROMETHAMINE 30 MG/1 ML VIAL IVPUSH ONE (11:01)
[2018-06-03] MEDS ORDERED: DEXTROSE 5%-WATER 100 ML IVPB ONE (11:51)
[2018-06-03] MEDS: CEFTRIAXONE 2 GM in DEXTROSE 5%-WATER 100 ML IVPB SCH (11:54)
[2018-06-03] MEDS: POTASSIUM CHLORIDE 40 MEQ in SODIUM CHLORIDE 1,000 ML IVPB SCH ×4 (13:56→23:00)
[2018-06-03] MEDS ORDERED: MORPHINE SULFATE 2 MG/ML VIAL IVPUSH ONE (15:09)
--- NOTE | 2018-06-03 17:56 | PN ---
Progress Note (short form) - Note Progress Note: ID consult dictated imp/reccd 28 yo female with 5 day history of fever and abdominal pain +vomiting no dysuria not sexually active +headache found to have acute pyelonephritis right kidney, ?left kidney renal sono negative diarrhea today no sick contacts headaches have resolved with fluids started on rocephin last night reports starting to feel a bit better today no antibiotics as outpt no history of UTIs in the past continue rocephin and IVF f/u cultures in am thrombocytopenia secondary to pyelonephritis Problem List - Problems (1) Fever Code(s): R50.9 - FEVER, UNSPECIFIED Qualifiers: Fever type: unspecified Qualified Code(s): R50.9 - Fever, unspecified (2) Pyelonephritis Code(s): N12 - TUBULO-INTERSTITIAL NEPHRITIS, NOT SPCF ACUTE OR CHRONIC (3) Vomiting Code(s): R11.10 - VOMITING, UNSPECIFIED (4) Thrombocytopenia Code(s): D69.6 - THROMBOCYTOPENIA, UNSPECIFIED
[2018-06-03] MEDS: MORPHINE SULFATE 2 MG/ML VIAL IVPUSH PRN (21:26)
[2018-06-03] MEDS: FAMOTIDINE 20 MG/50 ML IVPB 20 MG/50 ML MG IVPB SCH (21:28)
[2018-06-04] MEDS: ONDANSETRON 4 MG/2 ML VIAL IVPUSH PRN ×4 (00:08→20:50)
[2018-06-04] MEDS: ACETAMINOPHEN 1000 MG/100 ML VIAL (NON FORMULARY) IVPB PRN ×2 (00:28→14:07)
[2018-06-04] MEDS: MORPHINE SULFATE 2 MG/ML VIAL IVPUSH PRN ×2 (05:23→20:53)
[2018-06-04] MEDS: POTASSIUM CHLORIDE 40 MEQ in SODIUM CHLORIDE 1,000 ML IVPB SCH (06:33)
[2018-06-04 07:02] LABS: BASO % 0.2 % (0-2.0); EOS % 0.4 % (0-4.5); HEMATOCRIT 29.1 % (32.4-45.2); HEMOGLOBIN 9.6 GM/dL (10.7-15.3); LYMPH % 14.7 % (8-40); MCH 30.6 pg (25.7-33.7); MCHC 32.9 g/dl (32.0-36.0); MEAN CELL VOLUME 93.1 fl (80-96); MEAN PLT VOLUME 11.2 fl (7.5-11.1); MONO % 17.2 % (3.8-10.2); NEUT % 67.5 % (42.8-82.8); PLATELET COUNT 116 K/MM3 (134-434); RBC 3.13 M/mm3 (3.60-5.2); RDW 13.4 % (11.6-15.6); WHITE BLOOD COUNT 6.8 K/mm3 (4.0-10.0)
[2018-06-04 07:32] LABS: ALBUMIN 2.4 g/dl (3.4-5.0); ALK PHOS 47 U/L (45-117); ANION GAP 7 MMOL/L (8-16); BILIRUBIN,TOTAL 0.5 mg/dL (0.2-1); BLOOD UREA NITROGEN 7 mg/dL (7-18); CHLORIDE 115 mmol/L (98-107); CO2 19 mmol/L (21-32); CREATININE 0.8 mg/dL (0.55-1.3); GLUCOSE,RANDOM 78 mg/dL (74-106); SGOT/AST 12 U/L (15-37); SGPT/ALT 14 U/L (13-61); SODIUM 141 mmol/L (136-145); TOT PROT 5.5 g/dl (6.4-8.2)
[2018-06-04 07:34] LABS: INR 1.19 (0.83-1.09); PROTHROMBIN TIME (PATIENT) 14.1 SEC (9.7-13.0)
[2018-06-04 07:58] LABS: PHOSPHOROUS 0.9 mg/dL (2.5-4.9)
--- NOTE | 2018-06-04 08:16 | PN ---
Physical Exam: SUBJECTIVE: Patient seen and examined at bedside.Temp 102.8 yesterday afternoon. OBJECTIVE: Vital Signs Period Temp Pulse Resp BP Sys/Pedersen Pulse Ox Last 24 Hr 98.6 F-102.8 F 64-81 20-20 102-117/57-70 98-100 GENERAL: AAOx3 NAD HEAD: Normal with no signs of trauma. EYES: EOMI Sclera Clear ENT: MMM. NECK: Trachea midline, full range of motion, supple. LUNGS: CTAB HEART: RRR Nl S1S2 ABDOMEN: Right sided CVA tenderness EXTREMITIES: No CCE NEUROLOGICAL: Cranial nerves II through XII grossly intact. PSYCH: Normal mood, normal affect. SKIN: Warm, dry, normal turgor, no rashes or lesions noted Laboratory Results - last 24 hr 06/04/18 06/04/18 06/04/18 06:00 06:00 06:00 WBC 6.8 RBC 3.13 L Hgb 9.6 L Hct 29.1 L MCV 93.1 MCH 30.6 MCHC 32.9 RDW 13.4 Plt Count 116 L MPV 11.2 H Absolute Neuts (auto) 4.6 Neutrophils % 67.5 Lymphocytes % 14.7 D Monocytes % 17.2 H Eosinophils % 0.4 D Basophils % 0.2 Nucleated RBC % 0 PT with INR 14.10 H INR 1.19 H Sodium 141 Potassium 4.0 Chloride 115 H Carbon Dioxide 19 L Anion Gap 7 L BUN 7 Creatinine 0.8 Creat Clearance w eGFR 86.04 POC Glucometer Random Glucose 78 Calcium 7.0 L Phosphorus 0.9 L* Magnesium 2.0 Total Bilirubin 0.5 AST 12 L ALT 14 Alkaline Phosphatase 47 Total Protein 5.5 L Albumin 2.4 L 06/04/18 06:24 WBC RBC Hgb Hct MCV MCH MCHC RDW Plt Count MPV Absolute Neuts (auto) Neutrophils % Lymphocytes % Monocytes % Eosinophils % Basophils % Nucleated RBC % PT with INR INR Sodium Potassium Chloride Carbon Dioxide Anion Gap BUN Creatinine Creat Clearance w eGFR POC Glucometer 153 Random Glucose Calcium Phosphorus Magnesium Total Bilirubin AST ALT Alkaline Phosphatase Total Protein Albumin Active Medications Generic Name Dose Route Start Last Admin Trade Name Freq PRN Reason Stop Dose Admin Acetaminophen 1,000 mg 06/03/18 16:32 06/04/18 00:28 Ofirmev Injection - IVPB 1,000 mg Q8H PRN Administration FEVER Enoxaparin Sodium 40 mg 06/02/18 20:45 06/03/18 09:12 Lovenox - SQ 40 mg DAILY JEANETH Administration Ceftriaxone Sodium 2 gm/ 100 mls @ 200 mls/hr 06/03/18 11:15 06/03/18 11:54 Dextrose IVPB 200 mls/hr DAILY JEANETH Administration Protocol Potassium Chloride 40 meq/ 1,020 mls @ 150 mls/hr 06/03/18 12:00 06/04/18 06: 33 Sodium Chloride IVPB 150 mls/hr Q7H JEANETH Administration Famotidine/Sodium Chloride 20 mg in 50 mls @ 100 mls/hr 06/03/18 22:00 21:28 Pepcid 20 Mg Premixed Ivpb - IVPB 06/05/18 10:29 100 mls/hr BID JEANETH Administration Morphine Sulfate 2 mg 06/03/18 16:31 06/04/18 05:23 Morphine Sulfate IVPUSH 2 mg Q4H PRN Administration PAIN LEVEL 7 - 10 Ondansetron HCl 4 mg 06/02/18 20:38 06/04/18 05:22 Zofran Injection IVPUSH 4 mg Q6H PRN Administration NAUSEA ASSESSMENT/PLAN: 28 y/o female with no PMH presents to the ED with diffuse abdominal pain, fevers , loss of appetite found to have right sided pyelonephritis #Right sided Pyelonephritis * Ceftriaxone 2 gm Day 2. Recieved 1 gm in ED * will continue with ceftriaxone 2 gram daily * zofran PRN for nausea; Morphine 2 mg IVPUSH Q4H PRN, * NS @125mls/hr * monitor hemodynamics * Urine Cx--> lactose fermenting neg bacilli #F/E/N * No standing fluids * Monitor electrolytes * Regular diet DVT ppx: Lovenox 40 SQ Daily Visit type - Emergency Visit Emergency Visit: Yes ED Registration Date: 06/02/18 Care time: The patient presented to the Emergency Department on the above date and was hospitalized for further evaluation of their emergent condition. - New Patient This patient is new to me today: Yes Date on this admission: 06/04/18 - Critical Care Critical Care patient: No - Discharge Referral Referred to [facility] Med P.C.: No
[2018-06-04] MEDS ORDERED: DEXTROSE 5%-WATER 100 ML IVPB ONE (08:58)
[2018-06-04] MEDS ORDERED: NAPH,MB-DB/K PH,MBDB POWDER PACKET PO ONE (09:15)
[2018-06-04] MEDS: ENOXAPARIN NA (PORCINE) 40 MG/0.4 ML DISP.SYRIN SQ SCH (09:33)
[2018-06-04] MEDS: FAMOTIDINE 20 MG/50 ML IVPB 20 MG/50 ML MG IVPB SCH ×2 (09:33→22:13)
[2018-06-04] MEDS: CEFTRIAXONE 2 GM in DEXTROSE 5%-WATER 100 ML IVPB SCH (09:35)
[2018-06-04] MEDS: POTASSIUM PHOSPHATE 30 MM in DEXTROSE 5%-WATER - 500 ML IVPB ONE ×2 (11:36→12:13)
[2018-06-04] MEDS ORDERED: POTASSIUM PHOSPHATE 30 MM in DEXTROSE 5%-WATER - 500 ML IVPB ONE (11:45)
--- NOTE | 2018-06-04 14:47 | PN ---
Teaching Attending Note Name of Resident: Ramy Wilson ATTENDING PHYSICIAN STATEMENT I saw and evaluated the patient. I reviewed the resident's note and discussed the case with the resident. I agree with the resident's findings and plan as documented. SUBJECTIVE: Patient continues to be nauseas, no fever or chills. c/o mid epigastric pain. OBJECTIVE: Vital Signs Temperature 99.4 F 06/04/18 10:00 Pulse Rate 65 06/04/18 10:00 Respiratory Rate 18 06/04/18 10:00 Blood Pressure 114/72 06/04/18 10:00 O2 Sat by Pulse Oximetry (%) 98 06/04/18 09:00 GENERAL: The patient is awake, alert, and fully oriented, in no acute distress. HEAD: Normal with no signs of trauma. EYES: PERRL, extraocular movements intact, sclera anicteric, conjunctiva clear. ENT: Ears normal, oropharynx clear without exudates, moist mucous membranes. NECK: Trachea midline, full range of motion, supple. LUNGS: Breath sounds equal, clear to auscultation bilaterally, no wheezes, no crackles, no accessory muscle use. HEART: Regular rate and rhythm, S1, S2 without murmur, rub or gallop. ABDOMEN: Soft, mild epigastric tenderness. right CVA tenderness, no hepatosplenomegaly, no masses. EXTREMITIES: 2+ pulses, warm, well-perfused, no edema. NEUROLOGICAL: Cranial nerves II through XII grossly intact. Normal speech, gait not observed. PSYCH: Normal mood, normal affect. SKIN: Warm, dry, normal turgor, no rashes or lesions noted CBCD WBC 6.8 K/mm3 (4.0-10.0) 06/04/18 06:00 RBC 3.13 M/mm3 (3.60-5.2) L 06/04/18 06:00 Hgb 9.6 GM/dL (10.7-15.3) L 06/04/18 06:00 Hct 29.1 % (32.4-45.2) L 06/04/18 06:00 MCV 93.1 fl (80-96) 06/04/18 06:00 MCHC 32.9 g/dl (32.0-36.0) 06/04/18 06:00 RDW 13.4 % (11.6-15.6) 06/04/18 06:00 Plt Count 116 K/MM3 (134-434) L 06/04/18 06:00 MPV 11.2 fl (7.5-11.1) H 06/04/18 06:00 CMP Sodium 141 mmol/L (136-145) 06/04/18 06:00 Potassium 4.0 mmol/L (3.5-5.1) 06/04/18 06:00 Chloride 115 mmol/L (98-107) H 06/04/18 06:00 Carbon Dioxide 19 mmol/L (21-32) L 06/04/18 06:00 Anion Gap 7 MMOL/L (8-16) L 06/04/18 06:00 BUN 7 mg/dL (7-18) 06/04/18 06:00 Creatinine 0.8 mg/dL (0.55-1.3) 06/04/18 06:00 Creat Clearance w eGFR 86.04 (>60) 06/04/18 06:00 Random Glucose 78 mg/dL (74-106) 06/04/18 06:00 Calcium 7.0 mg/dL (8.5-10.1) L 06/04/18 06:00 Total Bilirubin 0.5 mg/dL (0.2-1) 06/04/18 06:00 AST 12 U/L (15-37) L 06/04/18 06:00 ALT 14 U/L (13-61) 06/04/18 06:00 Alkaline Phosphatase 47 U/L (45-117) 06/04/18 06:00 Total Protein 5.5 g/dl (6.4-8.2) L 06/04/18 06:00 Albumin 2.4 g/dl (3.4-5.0) L 06/04/18 06:00 Current Medications Generic Name Dose Route Start Last Admin Trade Name Freq PRN Reason Stop Dose Admin Acetaminophen 1,000 mg 06/03/18 16:32 06/04/18 14:07 Ofirmev Injection - IVPB 1,000 mg Q8H PRN Administration FEVER Enoxaparin Sodium 40 mg 06/02/18 20:45 06/04/18 09:33 Lovenox - SQ 40 mg DAILY JEANETH Administration Ceftriaxone Sodium 2 gm/ 100 mls @ 200 mls/hr 06/03/18 11:15 06/04/18 09:35 Dextrose IVPB 200 mls/hr DAILY JEANETH Administration Protocol Famotidine/Sodium Chloride 20 mg in 50 mls @ 100 mls/hr 06/03/18 22:00 09:33 Pepcid 20 Mg Premixed Ivpb - IVPB 06/05/18 10:29 100 mls/hr BID JEANETH Administration Potassium Phosphate 30 mm/ 510 mls @ 63.75 mls/hr 06/04/18 11:45 06/04/18 12: 13 Dextrose IVPB 06/04/18 17:14 63.75 mls/hr ONCE ONE Administration 30 MM/8 HR Morphine Sulfate 2 mg 06/03/18 16:31 06/04/18 05:23 Morphine Sulfate IVPUSH 2 mg Q4H PRN Administration PAIN LEVEL 7 - 10 Ondansetron HCl 4 mg 06/02/18 20:38 06/04/18 11:36 Zofran Injection IVPUSH 4 mg Q6H PRN Administration NAUSEA Home Medications Medication Instructions Recorded NK [No Known Home Medication] 06/02/18 Microbiology 06/02/18 19:43 Blood - Peripheral Venous Blood Culture - Preliminary NO GROWTH OBTAINED AFTER 72 HOURS, INCUBATION TO CONTINUE FOR 2 DAYS. 06/02/18 19:43 Blood - Peripheral Venous Blood Culture - Preliminary NO GROWTH OBTAINED AFTER 72 HOURS, INCUBATION TO CONTINUE FOR 2 DAYS. 06/03/18 17:30 Blood - Peripheral Venous Blood Culture - Preliminary NO GROWTH OBTAINED AFTER 48 HOURS, INCUBATION TO CONTINUE FOR 3 DAYS. 06/02/18 16:54 Urine - Urine Clean Catch Urine Culture - Final Escherichia Coli 06/02/18 11:25 Urine - Urine Clean Catch Urine Culture - Final NO GROWTH OBTAINED CT abdomen and pelvis: Right pylonephritis. Renal US : negative studies. Assessment and plan: Patient is a 28yo female with no significant PMHx presents to to the ED with a 5 day history of worsening abdominal pain with nausea and fever of 103 at home, and was found to have right sided CVA tenderness. # Acute pylonephritis will continue Rocephin 2gm IV daily, Id consult appreciated. Blood cx is negative so far, Ucx positive for E.coli #Sepsis with thrombocytopenia of 116k due to acute pylonephritis continue IVF and IV antibiotic, Zofran for n/v prn , tylenol for fever. morphine for pain. #Hypokalemia improved s/p IV KCL DVT px: Lovenox
--- NOTE | 2018-06-04 14:50 | PN ---
Progress Note (short form) - Note Progress Note: fevers down stilll wtih right sided abdominal pain Vital Signs Period Temp Pulse Resp BP Sys/Pedersen Pulse Ox Last 24 Hr 98.6 F-102.8 F 64-81 18-20 102-117/58-72 98-98 cor-rrr lungs clear abd soft,rightflank and midepigastric pain ext no edema CBC, BMP 06/04/18 06:00 06/04/18 06:00 Microbiology 06/02/18 16:54 Urine - Urine Clean Catch Urine Culture - Preliminary Lactose Fermenting Neg Bacilli 06/02/18 19:43 Blood - Peripheral Venous Blood Culture - Preliminary NO GROWTH OBTAINED AFTER 24 HOURS, INCUBATION TO CONTINUE FOR 4 DAYS. 06/02/18 19:43 Blood - Peripheral Venous Blood Culture - Preliminary NO GROWTH OBTAINED AFTER 24 HOURS, INCUBATION TO CONTINUE FOR 4 DAYS. 06/02/18 11:25 Urine - Urine Clean Catch Urine Culture - Final NO GROWTH OBTAINED imp/reccd pylelonephritis- by ct scan, has pyuria and right upper abdominal pain renal sono negative continue rocephin and IVF f/u cultures in am thrombocytopenia secondary to pyelonephritis-improved
[2018-06-05] MEDS: ACETAMINOPHEN 1000 MG/100 ML VIAL (NON FORMULARY) IVPB PRN (01:38)
[2018-06-05] MEDS: ONDANSETRON 4 MG/2 ML VIAL IVPUSH PRN ×3 (06:20→21:29)
[2018-06-05] MEDS ORDERED: DEXTROSE 5%-WATER 100 ML IVPB ONE (08:51)
[2018-06-05] MEDS: ENOXAPARIN NA (PORCINE) 40 MG/0.4 ML DISP.SYRIN SQ SCH (09:24)
[2018-06-05] MEDS: FAMOTIDINE 20 MG/50 ML IVPB 20 MG/50 ML MG IVPB SCH (09:24)
[2018-06-05] MEDS ORDERED: NAPH,MB-DB/K PH,MBDB POWDER PACKET PO ONE (09:26)
[2018-06-05] MEDS: CEFTRIAXONE 2 GM in DEXTROSE 5%-WATER 100 ML IVPB SCH (10:58)
--- NOTE | 2018-06-05 11:14 | EKG ---
Test Reason : Blood Pressure : / mmHG Vent. Rate : 097 BPM Atrial Rate : 097 BPM P-R Int : 140 ms QRS Dur : 088 ms QT Int : 322 ms P-R-T Axes : 147 131 124 degrees QTc Int : 408 ms SUSPECT ARM LEAD REVERSAL, INTERPRETATION ASSUMES NO REVERSAL PROBABLE SINUS RHYTHM LATERAL INFARCT PATTERN PROBABLY DUE TO LEAD REVERSAL ABNORMAL ECG NO PREVIOUS ECGS AVAILABLE Confirmed by EVELIN HEAD MD ([id number]) on 06/05/2018 11:13:44 AM Referred By: Confirmed By:EVELIN HEAD MD
[2018-06-05 12:00] LABS: HEMATOCRIT 35.4 % (32.4-45.2); HEMOGLOBIN 11.4 GM/dL (10.7-15.3); MCH 30.4 pg (25.7-33.7); MCHC 32.3 g/dl (32.0-36.0); MEAN PLT VOLUME 10.9 fl (7.5-11.1); PLATELET COUNT 163 K/MM3 (134-434); RBC 3.77 M/mm3 (3.60-5.2); RDW 13.4 % (11.6-15.6); WHITE BLOOD COUNT 6.3 K/mm3 (4.0-10.0)
[2018-06-05 12:22] LABS: ANION GAP 6 MMOL/L (8-16); BLOOD UREA NITROGEN 7 mg/dL (7-18); CALCIUM 8.4 mg/dL (8.5-10.1); CHLORIDE 109 mmol/L (98-107); CO2 23 mmol/L (21-32); CREATININE 0.8 mg/dL (0.55-1.3); GLUCOSE,RANDOM 94 mg/dL (74-106); MAGNESIUM 2.2 mg/dL (1.8-2.4); PHOSPHOROUS 2.1 mg/dL (2.5-4.9); POTASSIUM 3.6 mmol/L (3.5-5.1); SODIUM 138 mmol/L (136-145)
--- NOTE | 2018-06-05 13:08 | PN ---
Physical Exam: SUBJECTIVE: Patient seen and examined at bedside- patient still had a fever last night; patient states that she is feeling slightly better says her pain is a 6/10 had some vomiting this AM and is still not able to tolerate liquids; denies any CP/SOB/ urinary symptoms OBJECTIVE: Vital Signs Period Temp Pulse Resp BP Sys/Pedersen Pulse Ox Last 24 Hr 98.3 F-102.0 F 56-67 18-20 105-147/63-75 98-100 GENERAL: The patient is awake, alert, and fully oriented, in no acute distress. EYES:PEERLA: EOMI no scleral icterus NECK: no JVD; no lymphadenopathy LUNGS: CTA B/L; no rales, rhonchi or wheezing HEART: Regular rate and rhythm, S1, S2 without murmur, rub or gallop. ABDOMEN: Soft, slight tenderness upon palpation; +BS in all 4 quadrants; no CVA tenderness . EXTREMITIES: 2+ pulses, warm, well-perfused, no edema. . PSYCH: Normal mood, normal affect. SKIN: Warm, dry, normal turgor, no rashes or lesions noted Laboratory Results - last 24 hr 06/05/18 06/05/18 11:21 11:21 WBC 6.3 RBC 3.77 Hgb 11.4 Hct 35.4 D MCV 94.0 MCH 30.4 MCHC 32.3 RDW 13.4 Plt Count 163 D MPV 10.9 Sodium 138 Potassium 3.6 Chloride 109 H Carbon Dioxide 23 Anion Gap 6 L BUN 7 Creatinine 0.8 Creat Clearance w eGFR 86.04 Random Glucose 94 Calcium 8.4 L Phosphorus 2.1 L Magnesium 2.2 Active Medications Generic Name Dose Route Start Last Admin Trade Name Freq PRN Reason Stop Dose Admin Enoxaparin Sodium 40 mg 06/02/18 20:45 06/05/18 09:24 Lovenox - SQ 40 mg DAILY JEANETH Administration Ceftriaxone Sodium 2 gm/ 100 mls @ 200 mls/hr 06/03/18 11:15 06/05/18 10:58 Dextrose IVPB 200 mls/hr DAILY JEANETH Administration Protocol Morphine Sulfate 2 mg 06/03/18 16:31 06/04/18 20:53 Morphine Sulfate IVPUSH 2 mg Q4H PRN Administration PAIN LEVEL 7 - 10 Ondansetron HCl 4 mg 06/02/18 20:38 06/05/18 06:20 Zofran Injection IVPUSH 4 mg Q6H PRN Administration NAUSEA ASSESSMENT/PLAN: 28 y/o female with no PMH presents to the ED with diffuse abdominal pain, fevers , loss of appetite found to have right sided pyelonephritis #Right sided Pyelonephritis Ceftriaxone day 4 zofran PRN for nausea; tylenol/morphine PRN pain NS @125mls/hr monitor hemodynamics F/E/N NS @125mls/hr monitor electrolytes regular diet dvt ppx: lovenox Problem List - Problems (1) Pyelonephritis Code(s): N12 - TUBULO-INTERSTITIAL NEPHRITIS, NOT SPCF ACUTE OR CHRONIC (2) Abdominal pain Code(s): R10.9 - UNSPECIFIED ABDOMINAL PAIN Qualifiers: Abdominal location: unspecified location Qualified Code(s): R10.9 - Unspecified abdominal pain Visit type - Emergency Visit Emergency Visit: Yes ED Registration Date: 06/02/18 Care time: The patient presented to the Emergency Department on the above date and was hospitalized for further evaluation of their emergent condition. - New Patient This patient is new to me today: No - Critical Care Critical Care patient: No
--- NOTE | 2018-06-05 13:19 | PN ---
Progress Note (short form) - Note Progress Note: flank pain has resolved still with nausea, unable to eat, has midepigstric discomfort Vital Signs Period Temp Pulse Resp BP Sys/Pedersen Pulse Ox Last 24 Hr 98.3 F-101.4 F 56-67 18-20 105-147/63-75 98-100 cor-rrr lungs clear abd soft,nt, midepigastric tenderness to palpation no right abdominal discomfort ext no edema CBC, BMP 06/05/18 11:21 06/05/18 11:21 Microbiology 06/02/18 16:54 Urine - Urine Clean Catch Urine Culture - Final Escherichia Coli 06/02/18 19:43 Blood - Peripheral Venous Blood Culture - Preliminary NO GROWTH OBTAINED AFTER 48 HOURS, INCUBATION TO CONTINUE FOR 3 DAYS. 06/02/18 19:43 Blood - Peripheral Venous Blood Culture - Preliminary NO GROWTH OBTAINED AFTER 48 HOURS, INCUBATION TO CONTINUE FOR 3 DAYS. 06/03/18 17:30 Blood - Peripheral Venous Blood Culture - Preliminary NO GROWTH OBTAINED AFTER 24 HOURS, INCUBATION TO CONTINUE FOR 4 DAYS. 06/02/18 11:25 Urine - Urine Clean Catch Urine Culture - Final NO GROWTH OBTAINED imp/reccd pylelonephritis- by ct scan, right flank pain resolved ecoli UTI renal sono negative continue rocephin and IVF f/u cultures in am ?gastritis- consider PPI consider d/c morphine due to nausea
--- NOTE | 2018-06-05 13:51 | CONS ---
DATE OF CONSULTATION: 06/03/2018 REQUESTING PHYSICIAN: Hospitalist service. HISTORY: This is a 28-year-old woman I was asked to see for continued high-grade fever. She presented with a 5-day history of abdominal pain and fevers and chills on the to the ER. She was noted to have elevated heart rate, a white count of 14,000, and she had a CAT scan done with acute pyelonephritis of her right kidney, question of left upper lobe pyelonephritis as well. She had pyuria, but she denied any dysuria. She noted vomiting at home. She is not sexually active. She has no history of STDs. There is no history of any recent travel. PAST MEDICAL HISTORY: Unremarkable. She has never had a UTI. She has not taken any antibiotics recently. SOCIAL HISTORY: Negative. She has 3 children. All of whom are in good health, and they live with her. ALLERGIES: She has no known drug allergies. MEDICATIONS: She takes no medications. REVIEW OF SYSTEMS: Notable for the fever and the pain along with nausea and vomiting. She had a headache when she arrived at the emergency room, but that resolved after hydration. PHYSICAL EXAMINATION: Vital Signs: She had a fever of 102.8 when I saw her. Pulse 81. Blood pressure 117/64. Respiratory rate 20. General: She is an alert woman. She looks uncomfortable. HEENT: She is normocephalic. Eyes are anicteric. Neck: Supple. Lungs: Clear to auscultation. Heart: Regular rate and rhythm. Abdomen: She has right flank pain extending from her back around to her front abdomen. She has separately from that mid epigastric discomfort on palpation as well. She has bowel sounds. Extremities: Without edema. No rash. DIAGNOSTIC DATA: Labs notable for admission white count 14, repeat 8.6, hemoglobin 10.2 with 97,000 platelets, BUN 8, creatinine 0.8 with a calcium of 6.9. Normal LFTs. Urinalysis with 2+ leukocytosis, 151 white cells. test negative. Influenza screen negative. Urine and blood cultures were pending. CAT scan findings as previously stated. She had a renal sonogram that was unremarkable. In summary, this is a 28-year-old woman otherwise healthy admitted with fever for 5 days and the physical exam and CAT scan findings consistent with pyelonephritis. Reports she is starting to feel better. Headaches resolved with fluids. She has no history of prior antibiotic use or UTIs in the past. I would continue Rocephin and aggressive IV fluids. Follow up her cultures. Vomiting may be due partially to gastritis. Would consider PPI. Thrombocytopenia most likely on the basis of sepsis. Would trend and check an INR. Further recommendations to follow. The case was discussed with the hospitalist. KAMRON SOLO M.D. [id number]
[2018-06-05] MEDS ORDERED: ACETAMINOPHEN 325 MG TABLET (FP) PO PRN (16:33)
[2018-06-05] MEDS ORDERED: ACETAMINOPHEN 1000 MG/100 ML VIAL (NON FORMULARY) IVPB ONE (17:50)
--- NOTE | 2018-06-05 20:56 | PN ---
Teaching Attending Note Name of Resident: Ebony Brown ATTENDING PHYSICIAN STATEMENT I saw and evaluated the patient. I reviewed the resident's note and discussed the case with the resident. I agree with the resident's findings and plan as documented. SUBJECTIVE: Patient is comfortable with no acute distress, feels better , less nauseas improving , no fever. OBJECTIVE: Vital Signs Temperature 99.2 F 06/05/18 19:05 Pulse Rate 52 L 06/05/18 16:56 Respiratory Rate 18 06/05/18 16:56 Blood Pressure 115/62 06/05/18 16:56 O2 Sat by Pulse Oximetry (%) 100 06/05/18 09:00 GENERAL: The patient is awake, alert, and fully oriented, in no acute distress. HEAD: Normal with no signs of trauma. EYES: PERRL, extraocular movements intact, sclera anicteric, conjunctiva clear. ENT: Ears normal, oropharynx clear without exudates, moist mucous membranes. NECK: Trachea midline, full range of motion, supple. LUNGS: Breath sounds equal, clear to auscultation bilaterally, no wheezes, no crackles, no accessory muscle use. HEART: Regular rate and rhythm, S1, S2 without murmur, rub or gallop. ABDOMEN: Soft, mild tenderness but improving, normoactive bowel sounds, no guarding, no rebound, no hepatosplenomegaly, no masses. EXTREMITIES: 2+ pulses, warm, well-perfused, no edema. NEUROLOGICAL: Cranial nerves II through XII grossly intact. Normal speech, gait not observed. PSYCH: Normal mood, normal affect. SKIN: Warm, dry, normal turgor, no rashes or lesions noted CBCD WBC 6.3 K/mm3 (4.0-10.0) 06/05/18 11:21 RBC 3.77 M/mm3 (3.60-5.2) 06/05/18 11:21 Hgb 11.4 GM/dL (10.7-15.3) 06/05/18 11:21 Hct 35.4 % (32.4-45.2) D 06/05/18 11:21 MCV 94.0 fl (80-96) 06/05/18 11:21 MCHC 32.3 g/dl (32.0-36.0) 06/05/18 11:21 RDW 13.4 % (11.6-15.6) 06/05/18 11:21 Plt Count 163 K/MM3 (134-434) D 06/05/18 11:21 MPV 10.9 fl (7.5-11.1) 06/05/18 11:21 CMP Sodium 138 mmol/L (136-145) 06/05/18 11:21 Potassium 3.6 mmol/L (3.5-5.1) 06/05/18 11:21 Chloride 109 mmol/L (98-107) H 06/05/18 11:21 Carbon Dioxide 23 mmol/L (21-32) 06/05/18 11:21 Anion Gap 6 MMOL/L (8-16) L 06/05/18 11:21 BUN 7 mg/dL (7-18) 06/05/18 11:21 Creatinine 0.8 mg/dL (0.55-1.3) 06/05/18 11:21 Creat Clearance w eGFR 86.04 (>60) 06/05/18 11:21 Random Glucose 94 mg/dL (74-106) 06/05/18 11:21 Calcium 8.4 mg/dL (8.5-10.1) L 06/05/18 11:21 Total Bilirubin 0.5 mg/dL (0.2-1) 06/04/18 06:00 AST 12 U/L (15-37) L 06/04/18 06:00 ALT 14 U/L (13-61) 06/04/18 06:00 Alkaline Phosphatase 47 U/L (45-117) 06/04/18 06:00 Total Protein 5.5 g/dl (6.4-8.2) L 06/04/18 06:00 Albumin 2.4 g/dl (3.4-5.0) L 06/04/18 06:00 Current Medications Generic Name Dose Route Start Last Admin Trade Name Freq PRN Reason Stop Dose Admin Acetaminophen 650 mg 06/05/18 16:33 Tylenol - PO Q6H PRN FEVER Enoxaparin Sodium 40 mg 06/02/18 20:45 06/05/18 09:24 Lovenox - SQ 40 mg DAILY JEANETH Administration Ceftriaxone Sodium 2 gm/ 100 mls @ 200 mls/hr 06/03/18 11:15 06/05/18 10:58 Dextrose IVPB 200 mls/hr DAILY JEANETH Administration Protocol Morphine Sulfate 2 mg 06/03/18 16:31 06/04/18 20:53 Morphine Sulfate IVPUSH 2 mg Q4H PRN Administration PAIN LEVEL 7 - 10 Ondansetron HCl 4 mg 06/02/18 20:38 06/05/18 15:59 Zofran Injection IVPUSH 4 mg Q6H PRN Administration NAUSEA Home Medications Medication Instructions Recorded NK [No Known Home Medication] 06/02/18 Laboratory Tests 06/04/18 06/05/18 06:00 11:21 Phosphorus 0.9 L* 2.1 L Microbiology 06/02/18 19:43 Blood - Peripheral Venous Blood Culture - Preliminary NO GROWTH OBTAINED AFTER 72 HOURS, INCUBATION TO CONTINUE FOR 2 DAYS. 06/02/18 19:43 Blood - Peripheral Venous Blood Culture - Preliminary NO GROWTH OBTAINED AFTER 72 HOURS, INCUBATION TO CONTINUE FOR 2 DAYS. 06/03/18 17:30 Blood - Peripheral Venous Blood Culture - Preliminary NO GROWTH OBTAINED AFTER 48 HOURS, INCUBATION TO CONTINUE FOR 3 DAYS. 06/02/18 16:54 Urine - Urine Clean Catch Urine Culture - Final Escherichia Coli 06/02/18 11:25 Urine - Urine Clean Catch Urine Culture - Final NO GROWTH OBTAINED CT abdomen and pelvis: Right pylonephritis. Renal US : negative studies. Assessment and plan: Patient is a 28yo female with no significant PMHx presents to to the ED with a 5 day history of worsening abdominal pain with nausea and fever of 103 at home, and was found to have right sided CVA tenderness. # Acute pylonephritis will continue Rocephin 2gm IV daily, Id consult appreciated. Blood cx is negative so far, Ucx positive for E.coli waiting for sensitivity. #s/p Sepsis with thrombocytopenia improved ; 116k--163K due to acute pylonephritis continue IVF ,IV antibiotic, Zofran for n/v prn , tylenol for fever. morphine for pain. #severe Hypophosphetemia: repleted with IV Kphos 30mmole 500ml DVT px: Lovenox
[2018-06-05] MEDS: KETOROLAC TROMETHAMINE 30 MG/1 ML VIAL IM SCH (21:28)
[2018-06-05] MEDS ORDERED: RANITIDINE HCL 150 MG TABLET (FP) PO SCH (22:00)
[2018-06-05] MEDS ORDERED: METOCLOPRAMIDE HCL INJECTION 10 MG/2 ML VIAL IVPUSH ONE (23:38)
[2018-06-06] MEDS: KETOROLAC TROMETHAMINE 30 MG/1 ML VIAL IM SCH (02:30)
[2018-06-06] MEDS ORDERED: METOCLOPRAMIDE HCL INJECTION 10 MG/2 ML VIAL IVPUSH PRN (07:23)
[2018-06-06 07:26] LABS: BASO % 0.6 % (0-2.0); EOS % 6.8 % (0-4.5); HEMATOCRIT 28.8 % (32.4-45.2); HEMOGLOBIN 9.9 GM/dL (10.7-15.3); LYMPH % 32.3 % (8-40); MCH 32.1 pg (25.7-33.7); MCHC 34.3 g/dl (32.0-36.0); MEAN CELL VOLUME 93.5 fl (80-96); MEAN PLT VOLUME 10.8 fl (7.5-11.1); NEUT % 42.3 % (42.8-82.8); PLATELET COUNT 163 K/MM3 (134-434); RBC 3.09 M/mm3 (3.60-5.2); RDW 13.3 % (11.6-15.6); WHITE BLOOD COUNT 4.3 K/mm3 (4.0-10.0)
--- NOTE | 2018-06-06 08:41 | PN ---
Teaching Attending Note Name of Resident: Ebony Brown ATTENDING PHYSICIAN STATEMENT I saw and evaluated the patient. I reviewed the resident's note and discussed the case with the resident. I agree with the resident's findings and plan as documented. SUBJECTIVE: Patient is feeling better , no nausea or vomiting, no shortness of breath. no fever or chills. OBJECTIVE: Vital Signs Temperature 98.6 F 06/06/18 05:33 Pulse Rate 51 L 06/06/18 05:33 Respiratory Rate 18 06/06/18 05:33 Blood Pressure 123/68 06/06/18 05:33 O2 Sat by Pulse Oximetry (%) 100 06/05/18 21:00 GENERAL: The patient is awake, alert, and fully oriented, in no acute distress. HEAD: Normal with no signs of trauma. EYES: PERRL, extraocular movements intact, sclera anicteric, conjunctiva clear. ENT: Ears normal, oropharynx clear without exudates, moist mucous membranes. NECK: Trachea midline, full range of motion, supple. LUNGS: Breath sounds equal, clear to auscultation bilaterally, no wheezes, no crackles, no accessory muscle use. HEART: Regular rate and rhythm, S1, S2 without murmur, rub or gallop. ABDOMEN: Soft, NT, ND, normoactive bowel sounds, no guarding, no rebound, no hepatosplenomegaly, no masses. EXTREMITIES: 2+ pulses, warm, well-perfused, no edema. NEUROLOGICAL: Cranial nerves II through XII grossly intact. Normal speech, gait not observed. PSYCH: Normal mood, normal affect. SKIN: Warm, dry, normal turgor, no rashes or lesions noted CBCD WBC 4.3 K/mm3 (4.0-10.0) 06/06/18 06:30 RBC 3.09 M/mm3 (3.60-5.2) L 06/06/18 06:30 Hgb 9.9 GM/dL (10.7-15.3) L 06/06/18 06:30 Hct 28.8 % (32.4-45.2) L D 06/06/18 06:30 MCV 93.5 fl (80-96) 06/06/18 06:30 MCHC 34.3 g/dl (32.0-36.0) 06/06/18 06:30 RDW 13.3 % (11.6-15.6) 06/06/18 06:30 Plt Count 163 K/MM3 (134-434) 06/06/18 06:30 MPV 10.8 fl (7.5-11.1) 06/06/18 06:30 CMP Sodium 139 mmol/L (136-145) 06/06/18 15:00 Potassium 4.3 mmol/L (3.5-5.1) 06/06/18 15:00 Chloride 108 mmol/L (98-107) H 06/06/18 15:00 Carbon Dioxide 24 mmol/L (21-32) 06/06/18 15:00 Anion Gap 7 MMOL/L (8-16) L 06/06/18 15:00 BUN 8 mg/dL (7-18) 06/06/18 15:00 Creatinine 0.8 mg/dL (0.55-1.3) 06/06/18 15:00 Creat Clearance w eGFR 86.04 (>60) 06/06/18 15:00 Random Glucose 83 mg/dL (74-106) 06/06/18 15:00 Calcium 8.1 mg/dL (8.5-10.1) L 06/06/18 15:00 Total Bilirubin 0.2 mg/dL (0.2-1) 06/06/18 15:00 AST 118 U/L (15-37) H 06/06/18 15:00 ALT 157 U/L (13-61) H 06/06/18 15:00 Alkaline Phosphatase 65 U/L (45-117) 06/06/18 15:00 Total Protein 6.2 g/dl (6.4-8.2) L 06/06/18 15:00 Albumin 2.6 g/dl (3.4-5.0) L 06/06/18 15:00 Current Medications Generic Name Dose Route Start Last Admin Trade Name Freq PRN Reason Stop Dose Admin Acetaminophen 650 mg 06/05/18 16:33 Tylenol - PO Q6H PRN dc'd FEVER Enoxaparin Sodium 40 mg 06/02/18 20:45 06/06/18 09:40 Lovenox - SQ 40 mg DAILY JEANETH Administration Lactated Ringer's 1,000 ml in 1,000 mls @ 100 mls/hr 06/06/18 10:30 06/06/18 10:59 Lactated Ringers Solution IV 100 mls/hr ASDIR JEANETH Administration Ketorolac Tromethamine 30 mg 06/06/18 10:00 06/06/18 17:04 Toradol Injection - IVPUSH 06/10/18 09:59 Not Given Q8H-IV JEANETH dc'd Levofloxacin 500 mg 06/06/18 10:00 06/06/18 09:40 Levaquin - PO 500 mg DAILY JEANETH Administration Ranitidine HCl 150 mg 06/06/18 11:45 06/06/18 12:24 Zantac - PO 150 mg BID JEANETH Administration Home Medications Medication Instructions Recorded NK [No Known Home Medication] 06/02/18 Microbiology 06/02/18 19:43 Blood - Peripheral Venous Blood Culture - Preliminary NO GROWTH OBTAINED AFTER 72 HOURS, INCUBATION TO CONTINUE FOR 2 DAYS. 06/02/18 19:43 Blood - Peripheral Venous Blood Culture - Preliminary NO GROWTH OBTAINED AFTER 72 HOURS, INCUBATION TO CONTINUE FOR 2 DAYS. 06/03/18 17:30 Blood - Peripheral Venous Blood Culture - Preliminary NO GROWTH OBTAINED AFTER 48 HOURS, INCUBATION TO CONTINUE FOR 3 DAYS. 06/02/18 16:54 Urine - Urine Clean Catch Urine Culture - Final Escherichia Coli sensitive to everything 06/02/18 11:25 Urine - Urine Clean Catch Urine Culture - Final NO GROWTH OBTAINED CT abdomen and pelvis: Right pylonephritis. Renal US : negative studies. US of liver: gallbladder with sludge Laboratory Tests 06/04/18 06/05/18 06/06/18 06:00 11:21 06:30 Phosphorus 0.9 L* 2.1 L AST 12 L 176 H ALT 14 170 H Alkaline Phosphatase 47 62 06/06/18 15:00 Phosphorus AST 118 H ALT 157 H Alkaline Phosphatase 65 Assessment and plan: Patient is a 28yo female with no significant PMHx presents to to the ED with a 5 day history of worsening abdominal pain with nausea and fever of 103 at home, and was found to have right sided CVA tenderness. # Acute transaminitis: elevated AST/ALT will trend, will discontinue Rocephin and Reglan, tylenol and Ketorolac for now, continue IVF LR, and levaquin orally , US of the liver: large gallbladder with sludge. will order MRCP if negative patient can be discharged for 7 days of levaquin for pylonephyritis will repeat CMp in am if trending down and MRCP negative then discharge the patient. # Acute pylonephritis s/p 4 days of IV Rocephin 2gm daily, discontinued today for elevated Transaminitis , will monitor, also US of liver shows large gallbladder with sludge , will check MRCP if negative then will discharge her . Id consult appreciated. Blood cx is negative so far, Ucx positive for E.coli sensitive to everything. #s/p Sepsis with thrombocytopenia improved ; 116k--163K due to acute pylonephritis continue IVF ,s/p IV antibiotic, Zofran for n/v prn , tylenol. #s/p severe Hypophosphetemia: repleted with IV Kphos 30mmole 500ml DVT px: Lovenox
[2018-06-06] MEDS ORDERED: DEXTROSE 5%-WATER 100 ML IVPB ONE (08:46)
[2018-06-06 08:48] LABS: ALBUMIN 2.4 g/dl (3.4-5.0); ALK PHOS 62 U/L (45-117); ANION GAP 6 MMOL/L (8-16); BILIRUBIN,TOTAL 0.4 mg/dL (0.2-1); BLOOD UREA NITROGEN 8 mg/dL (7-18); CALCIUM 7.9 mg/dL (8.5-10.1); CHLORIDE 110 mmol/L (98-107); CO2 23 mmol/L (21-32); CREATININE 0.8 mg/dL (0.55-1.3); GLUCOSE,RANDOM 81 mg/dL (74-106); MAGNESIUM 2.2 mg/dL (1.8-2.4); PHOSPHOROUS 3.6 mg/dL (2.5-4.9); POTASSIUM 3.7 mmol/L (3.5-5.1); SGOT/AST 176 U/L (15-37); SGPT/ALT 170 U/L (13-61); SODIUM 138 mmol/L (136-145)
--- NOTE | 2018-06-06 08:57 | PN ---
Physical Exam: SUBJECTIVE: Patient seen and examined at bedside- patient still having some episodes of vomiting and diarrhea however states her pain is better; did not spike fevers; denies CP/SOB/or urinary symptoms OBJECTIVE: Vital Signs Period Temp Pulse Resp BP Sys/Pedersen Pulse Ox Last 24 Hr 98.4 F-100.8 F 49-52 18-18 115-129/62-74 100-100 GENERAL: The patient is awake, alert, and fully oriented, in no acute distress. EYES: PEERLA: EOMI no scleral icterus NECK: no JVD; no lymphadenopathy LUNGS: CTA B/L; no rales, rhonchi or wheezing. HEART: Regular rate and rhythm, S1, S2 without murmur, rub or gallop. ABDOMEN: Soft, slight tenderness upon palpation; +BS in all 4 quadrants EXTREMITIES: 2+ pulses, warm, well-perfused, no edema. PSYCH: Normal mood, normal affect. SKIN: Warm, dry, normal turgor, no rashes or lesions noted Laboratory Results - last 24 hr 06/05/18 06/05/18 06/06/18 11:21 11:21 06:30 WBC 6.3 4.3 RBC 3.77 3.09 L Hgb 11.4 9.9 L Hct 35.4 D 28.8 L D MCV 94.0 93.5 MCH 30.4 32.1 MCHC 32.3 34.3 RDW 13.4 13.3 Plt Count 163 D 163 MPV 10.9 10.8 Absolute Neuts (auto) 1.8 Neutrophils % 42.3 L D Lymphocytes % 32.3 D Monocytes % 18.0 H Eosinophils % 6.8 H D Basophils % 0.6 Nucleated RBC % 0 Sodium 138 Potassium 3.6 Chloride 109 H Carbon Dioxide 23 Anion Gap 6 L BUN 7 Creatinine 0.8 Creat Clearance w eGFR 86.04 Random Glucose 94 Calcium 8.4 L Phosphorus 2.1 L Magnesium 2.2 Total Bilirubin AST ALT Alkaline Phosphatase Total Protein Albumin 06/06/18 06:30 WBC RBC Hgb Hct MCV MCH MCHC RDW Plt Count MPV Absolute Neuts (auto) Neutrophils % Lymphocytes % Monocytes % Eosinophils % Basophils % Nucleated RBC % Sodium 138 Potassium 3.7 Chloride 110 H Carbon Dioxide 23 Anion Gap 6 L BUN 8 Creatinine 0.8 Creat Clearance w eGFR 86.04 Random Glucose 81 Calcium 7.9 L Phosphorus 3.6 Magnesium 2.2 Total Bilirubin 0.4 AST 176 H ALT 170 H Alkaline Phosphatase 62 Total Protein 6.0 L Albumin 2.4 L Active Medications Generic Name Dose Route Start Last Admin Trade Name Freq PRN Reason Stop Dose Admin Acetaminophen 650 mg 06/05/18 16:33 Tylenol - PO Q6H PRN FEVER Enoxaparin Sodium 40 mg 06/02/18 20:45 06/05/18 09:24 Lovenox - SQ 40 mg DAILY JEANETH Administration Ceftriaxone Sodium 2 gm/ 100 mls @ 200 mls/hr 06/03/18 11:15 06/05/18 10:58 Dextrose IVPB 200 mls/hr DAILY JEANETH Administration Protocol Ketorolac Tromethamine 30 mg 06/06/18 10:00 Toradol Injection - IVPUSH 06/10/18 09:59 Q8H-IV JEANETH Metoclopramide HCl 10 mg 06/06/18 07:23 Reglan Injection - IVPUSH Q6H PRN NAUSEA AND/OR VOMITING Ranitidine HCl 150 mg 06/05/18 22:00 06/05/18 21:29 Zantac - PO 150 mg BID JEANETH Administration ASSESSMENT/PLAN: 28 y/o female with no PMH presents to the ED with diffuse abdominal pain, fevers , loss of appetite found to have right sided pyelonephritis #Right sided Pyelonephritis Ceftriaxone day 5- switched to levaquin 500 given elevated LFTS zofran PRN for nausea; tylenol PRN for pain LR @100mls/hr monitor hemodynamics #Transaminitis d/c'd ceftriaxone and reglan RUQ u/s shows slude but no acute choley will repeat CMP in AM F/E/N LR @100mls/hr monitor electrolytes regular diet dvt ppx: lovenox Problem List - Problems (1) Pyelonephritis Code(s): N12 - TUBULO-INTERSTITIAL NEPHRITIS, NOT SPCF ACUTE OR CHRONIC (2) Abdominal pain Code(s): R10.9 - UNSPECIFIED ABDOMINAL PAIN Qualifiers: Abdominal location: unspecified location Qualified Code(s): R10.9 - Unspecified abdominal pain Visit type - Emergency Visit Emergency Visit: Yes ED Registration Date: 06/02/18 Care time: The patient presented to the Emergency Department on the above date and was hospitalized for further evaluation of their emergent condition. - New Patient This patient is new to me today: No - Critical Care Critical Care patient: No
[2018-06-06] MEDS ORDERED: PANTOPRAZOLE 40 MG TABLET (FP) PO ONE (09:19)
[2018-06-06] MEDS: ENOXAPARIN NA (PORCINE) 40 MG/0.4 ML DISP.SYRIN SQ SCH (09:40)
[2018-06-06] MEDS: KETOROLAC TROMETHAMINE 30 MG/1 ML VIAL IVPUSH SCH ×2 (09:41→17:04)
[2018-06-06] MEDS ORDERED: PANTOPRAZOLE 40 MG TABLET (FP) PO SCH (10:00)
[2018-06-06] MEDS: LACTATED RINGERS SOLUTION 1,000 ML/1,000 ML INFUS.BAG IV SCH (10:59)
[2018-06-06] MEDS: RANITIDINE HCL 150 MG TABLET (FP) PO SCH ×2 (12:24→21:00)
[2018-06-06 15:49] LABS: ALBUMIN 2.6 g/dl (3.4-5.0); ALK PHOS 65 U/L (45-117); ANION GAP 7 MMOL/L (8-16); BILIRUBIN,TOTAL 0.2 mg/dL (0.2-1); BLOOD UREA NITROGEN 8 mg/dL (7-18); CALCIUM 8.1 mg/dL (8.5-10.1); CHLORIDE 108 mmol/L (98-107); CO2 24 mmol/L (21-32); CREATININE 0.8 mg/dL (0.55-1.3); GLUCOSE,RANDOM 83 mg/dL (74-106); POTASSIUM 4.3 mmol/L (3.5-5.1); SGOT/AST 118 U/L (15-37); SGPT/ALT 157 U/L (13-61); SODIUM 139 mmol/L (136-145); TOT PROT 6.2 g/dl (6.4-8.2)
--- NOTE | 2018-06-06 18:53 | PN ---
Progress Note (short form) - Note Progress Note: feels much better flank pain has resolved abdominal pain has resolved eating dinner no more vomiting Vital Signs Period Temp Pulse Resp BP Sys/Pedersen Pulse Ox Last 24 Hr 98.4 F-99.2 F 49-54 18-18 123-142/68-80 100-100 cor-rrr lungs clear abd soft,no flank pain, no ruq pain, no midepigastric pain ext no edema CBC, BMP 06/06/18 06:30 06/06/18 15:00 Laboratory Tests 06/06/18 15:00 AST 118 H ALT 157 H ultrasound- distended GB, no signs cholycystitis Microbiology 06/03/18 17:30 Blood - Peripheral Venous Blood Culture - Preliminary NO GROWTH OBTAINED AFTER 72 HOURS, INCUBATION TO CONTINUE FOR 2 DAYS. 06/02/18 19:43 Blood - Peripheral Venous Blood Culture - Preliminary NO GROWTH OBTAINED AFTER 72 HOURS, INCUBATION TO CONTINUE FOR 2 DAYS. 06/02/18 19:43 Blood - Peripheral Venous Blood Culture - Preliminary NO GROWTH OBTAINED AFTER 72 HOURS, INCUBATION TO CONTINUE FOR 2 DAYS. 06/02/18 16:54 Urine - Urine Clean Catch Urine Culture - Final Escherichia Coli 06/02/18 11:25 Urine - Urine Clean Catch Urine Culture - Final NO GROWTH OBTAINED a/p pyelonephritis (right) ecoli uti- ag sensitive doing well last fever 4 gastritis- improved switched by primary team to levaquin due to elevated LFTs day #4 antibiotics would treat another 7 days - either with levaquin or bactrim would repeat lfts in am pror to d/c home f/u with her PMD Problem List - Problems (1) Fever Code(s): R50.9 - FEVER, UNSPECIFIED Qualifiers: Fever type: unspecified Qualified Code(s): R50.9 - Fever, unspecified (2) Pyelonephritis Code(s): N12 - TUBULO-INTERSTITIAL NEPHRITIS, NOT SPCF ACUTE OR CHRONIC (3) Vomiting Code(s): R11.10 - VOMITING, UNSPECIFIED (4) Thrombocytopenia Code(s): D69.6 - THROMBOCYTOPENIA, UNSPECIFIED
[2018-06-06] MEDS ORDERED: IBUPROFEN 800 MG/8 ML IJ IVPB ONE (21:00)
[2018-06-07 07:52] LABS: HEMATOCRIT 29.8 % (32.4-45.2); HEMOGLOBIN 10.1 GM/dL (10.7-15.3); MCH 31.1 pg (25.7-33.7); MCHC 33.9 g/dl (32.0-36.0); MEAN CELL VOLUME 91.7 fl (80-96); MEAN PLT VOLUME 10.4 fl (7.5-11.1); PLATELET COUNT 200 K/MM3 (134-434); RBC 3.25 M/mm3 (3.60-5.2); RDW 13.2 % (11.6-15.6); WHITE BLOOD COUNT 4.3 K/mm3 (4.0-10.0)
[2018-06-07 08:22] LABS: ALBUMIN 2.5 g/dl (3.4-5.0); ALK PHOS 61 U/L (45-117); ANION GAP 8 MMOL/L (8-16); BILIRUBIN,DIRECT 0.2 mg/dL (0.0-0.2); BILIRUBIN,TOTAL 0.3 mg/dL (0.2-1); BLOOD UREA NITROGEN 4 mg/dL (7-18); CALCIUM 7.9 mg/dL (8.5-10.1); CHLORIDE 106 mmol/L (98-107); CO2 23 mmol/L (21-32); CREATININE 0.7 mg/dL (0.55-1.3); GLUCOSE,RANDOM 81 mg/dL (74-106); MAGNESIUM 1.7 mg/dL (1.8-2.4); PHOSPHOROUS 3.5 mg/dL (2.5-4.9); POTASSIUM 3.8 mmol/L (3.5-5.1); SGOT/AST 62 U/L (15-37); SGPT/ALT 115 U/L (13-61); SODIUM 138 mmol/L (136-145)
[2018-06-07] MEDS ORDERED: MAGNESIUM OXIDE 400 MG TABLET (FP) PO ONE (08:26)
[2018-06-07] MEDS: ENOXAPARIN NA (PORCINE) 40 MG/0.4 ML DISP.SYRIN SQ SCH (09:55)
[2018-06-07] MEDS: RANITIDINE HCL 150 MG TABLET (FP) PO SCH (09:55)
[2018-06-07] MEDS: LACTATED RINGERS SOLUTION 1,000 ML/1,000 ML INFUS.BAG IV SCH (09:56)
--- NOTE | 2018-06-07 10:42 | DS ---
Physical Exam: SUBJECTIVE: Patient seen and examined at bedside- no acute events overnight. pateint had no fevers, no mroe vomiting or diarrhea she is feeling much better. deneis CP/SOB?N/V fevers or chills OBJECTIVE: Vital Signs Period Temp Pulse Resp BP Sys/Pedersen Pulse Ox Last 24 Hr 98.6 F-99.0 F 54-58 18-20 134-149/69-92 97 PHYSICAL EXAM GENERAL: The patient is awake, alert, and fully oriented, in no acute distress. EYES: PEERLA; EOMI: no scleral icterus NECK: no JVD; no lymphadenopathy LUNGS:CTA B/L; no rales, rhonchi or wheezing HEART: Regular rate and rhythm, S1, S2 without murmur, rub or gallop. ABDOMEN: Soft, nontender; nondistended +BS in all 4 quadrnats EXTREMITIES: 2+ pulses, warm, well-perfused, no edema. PSYCH: Normal mood, normal affect. SKIN: Warm, dry, normal turgor, no rashes or lesions noted. LABS Laboratory Results - last 24 hr 06/06/18 06/07/18 06/07/18 15:00 07:20 07:20 WBC 4.3 RBC 3.25 L Hgb 10.1 L Hct 29.8 L MCV 91.7 MCH 31.1 MCHC 33.9 RDW 13.2 Plt Count 200 D MPV 10.4 Sodium 139 138 Potassium 4.3 3.8 Chloride 108 H 106 Carbon Dioxide 24 23 Anion Gap 7 L 8 BUN 8 4 L Creatinine 0.8 0.7 Creat Clearance w eGFR 86.04 100.38 Random Glucose 83 81 Calcium 8.1 L 7.9 L Phosphorus 3.5 Magnesium 1.7 L Total Bilirubin 0.2 0.3 Direct Bilirubin 0.2 AST 118 H 62 H ALT 157 H 115 H Alkaline Phosphatase 65 61 Total Protein 6.2 L 6.0 L Albumin 2.6 L 2.5 L 06/07/18 07:20 WBC RBC Hgb Hct MCV MCH MCHC RDW Plt Count MPV Sodium Potassium Chloride Carbon Dioxide Anion Gap BUN Creatinine Creat Clearance w eGFR Random Glucose Calcium Phosphorus Magnesium Total Bilirubin Cancelled Direct Bilirubin Cancelled AST Cancelled ALT Cancelled Alkaline Phosphatase Cancelled Total Protein Cancelled Albumin Cancelled HOSPITAL COURSE: Date of Admission:03/29/19 28 y/o female with no PMH presents to to the ED with a 5 day history of worsening abdominal pains. She says the pain started on Tuesday out of nowhere, and has been continuous since then. She describes the pain as sharp and cramp and states that it is worse at night to the point where she cannot sleep. She has had fevers at home, the highest being 103. She has had multiple episodes of vomiting but no diarrhea. states she has never had anything like this before- no one else is sick at home and she denies any recent travel. on arrival patient had a fever of 13 an elevated WBC count and a lactic acid of 5.6-she was given fluids started on abx. she was found to have right sided pyelonephritis U/A was positive . after starting ceftriaxone her LFTS bumped up - we stopped ceftriaxone switched to levaquin and did a RUQ U/S which showed an enlarged GB with sludge but no evidence of acute choley; her lFTS downtrended we dishcarged her on 7 more days of levaquin and gave her a GI and a surgeon referral for outpatient follow up. Date of Discharge: 06/07/18 Minutes to complete discharge: 39 Discharge Summary Reason For Visit: PYELONEPHRITIS Condition: Improved - Instructions Diet, Activity, Other Instructions: You came to the emergency room with complaints of vomiting and abdominal pain and were found to have an infection of your kidney. We treated you with antibiotics and fluids and your symptoms improved. Please resume all of your home medications in addition: Please take the antibiotic Levaquin 500mg daily for another 7 days Please take the medication Zantac 150mg daily Please follow up with your primary care physician, Dr Rosado within one week and please have your liver enzymes repeated at that time avoid taking tylenol as those increase your liver enzymes We are referring you to a grain blender, Dr. Ramey we would like you to follow up with We are also referring you to a surgeon as your gallbladder was enlarged on the ultrasound that was performed *if you begin to experience worsening abdominal pain, chest pains, shortness of breath, please return to the emergency room immediately you need a repeat chest xray by your primary doctor to evaluate the fluids around your right lung. ( in a week ) You will need a transvaginal US to evaluate a right ovarian cyst that was found during one of your scans. Please see an FLOOR MECHANIC about this. Referrals: Ariana Rosado-Rosa [Other] - 1 Week Deysi Lofton MD [Staff Physician] - Ana Ramey DO [Staff Physician] - 1 Week Reji Smart MD [Staff Physician] - 1 Week Disposition: HOME - Home Medications Comprehensive Discharge Medication List: Ambulatory Orders Ranitidine [Zantac -] 150 mg PO BID #28 tablet 06/07/18 levoFLOXacin [Levaquin -] 500 mg PO DAILY #7 tablet 06/07/18 Problem List - Problems (1) Pyelonephritis Code(s): N12 - TUBULO-INTERSTITIAL NEPHRITIS, NOT SPCF ACUTE OR CHRONIC (2) Abdominal pain Code(s): R10.9 - UNSPECIFIED ABDOMINAL PAIN Qualifiers: Abdominal location: unspecified location Qualified Code(s): R10.9 - Unspecified abdominal pain This patient is new to me today: No Emergency Visit: Yes ED Registration Date: 06/02/18 Care time: The patient presented to the Emergency Department on the above date and was hospitalized for further evaluation of their emergent condition. Critical Care patient: No - Discharge Referral Referred to [facility] Med P.C.: No
[2018-06-07 11:24] VITALS: BP 125/89; PULSE 59; TEMP 98.1
--- NOTE | 2018-06-07 14:52 | PN ---
Teaching Attending Note Name of Resident: Ebony Brown ATTENDING PHYSICIAN STATEMENT I saw and evaluated the patient. I reviewed the resident's note and discussed the case with the resident. I agree with the resident's findings and plan as documented. SUBJECTIVE: No fever or chills. has no pain , feels better . OBJECTIVE: NAD CV: RRR, no MRG Lungs: CTAB Abd: soft, NT, ND , NL BS . no CVA tenderness Ext : no edema or erythema ASSESSMENT AND PLAN: 28 y/o lady with no significant PMH who presented with fever and Abd pain and was found to have R pyelonephritis 1- R pyelonephritis : improved . U c x reviewed. - cont levaquin x 7 more days - R pleural effusion , is probably due to the local process, she was instructed to follow with PCP for a repeat chest xray. 2- Transaminitis : likely due to Abx. no abd pain, no elevation in Alk phos or bili to indicate obstruction. LFts improved - need repeat LFTS in 1 week, if not resolving, will need out pt MRI and GI follow up 3- R adnexal cyst: she was made aware of the need to follow with D[employer] DEVELOPER for monitoring and more imaging 4-dispo : DC home
== END 2018-06-07 13:36 | disposition home or self-care (01) | DRG 720 ==
LOC: JER 12:12 → JERBED 19:22 → J7W 23:08
PROVIDERS: ADMIT Internal Medicine; ATTEND Internal Medicine
DX: A41.9 Sepsis, unspecified organism (principal); N10 Acute pyelonephritis; D69.6 Thrombocytopenia, unspecified; E83.39 Other disorders of phosphorus metabolism; E87.6 Hypokalemia; B96.20 Unspecified Escherichia coli [E. coli] as the cause of diseases classified elsewhere; R74.0 Nonspecific elevation of levels of transaminase and lactic acid dehydrogenase [LDH]; N83.8 Other noninflammatory disorders of ovary, fallopian tube and broad ligament
CPT/HCPCS: 36415; 71046-TC-FY; 74177-TC; 76705-TC; 76775-TC; 80048; 80053; 80076; 81003; 82962; 83605; 83690; 83735; 84100; 84703; 85025; 85027; 85610; 87040; 87086; 87186; 87804; 93005; 93010; 99284-25; J0131; J7030; Q9967